=== PATIENT | male | born 1975 | race Two or more races ===

== ENCOUNTER 2019-09-21 16:19 | Observation (INO) | payer SELFPAY ==
[2019-09-21] MEDS ORDERED: Sodium Chloride 0.9% 1,000 ML IV ONE (17:11)
[2019-09-21] MEDS ORDERED: Sodium Chloride 0.9% 10 ML Syringe FLUSH PRN ×2 (17:11→21:23)
[2019-09-21] MEDS ORDERED: Ondansetron 4 MG/2 ML SDV IVPUSH ONE ×2 (17:11→19:44)
[2019-09-21] MEDS ORDERED: Sodium Chloride 0.9% 2.5 ML Syringe FLUSH PRN ×2 (17:11→21:23)
[2019-09-21] MEDS ORDERED: fentaNYL 100 MCG/2 ML SDV IVPUSH ONE ×2 (17:14→19:14)
[2019-09-21 17:32] LABS: BLOOD UREA NITROGEN,BUN 12 mg/dL (7.0-18.0); CARBON DIOXIDE,CO2 23.9 mmol/L (21.0-32.0); CHLORIDE,CL 99 mmol/L (98-107); GLUCOSE RANDOM 283 mg/dL (74-106); LIPASE 128 U/L (73-393); POTASSIUM,K 3.7 mmol/L (3.5-5.1); SODIUM,NA 133 mmol/L (136-148)
--- NOTE | 2019-09-21 17:48 | EDM.PDOC ---
<Sonali Case R - Last Filed: 09/21/19 20:37> ED HPI GENERAL MEDICAL PROBLEM - General Chief Complaint: Abdominal Pain Stated Complaint: FEVER, STOMACK PAIN Time Seen by Provider: 09/21/19 16:27 Source of Information: Reports: Patient History Limitations: Reports: No Limitations - History of Present Illness INITIAL COMMENTS - FREE TEXT/NARRATIVE: Patient presents reporting abdominal pain. Interview accomplished with the assistance of a porter luggage. Patient reports about 1:00 in the morning he started with some mild abdominal pain. At 4 AM it began to worsen. Also complains of weakness, lightheadedness, and chills. He characterizes the pain as a crampy pain. States it feels like he has to have a bowel movement but is unable to do so. Denies nausea vomiting diarrhea or dysuria. He did eat this afternoon approximately 1 hour prior to arrival a full meal of beans and eggs and toast. Has a medical history includes colitis. The patient states that he has had several episodes in the past and was treated with "some pills". abdominal Pain Score (Numeric/FACES): 8 - Related Data Allergies Allergy/AdvReac Type Severity Reaction Status Date / Time No Known Allergies Allergy Verified 09/21/19 22:16 Home Meds: Home Meds . [No Known Home Meds] 11/24/14 [History] Past Medical History Gastrointestinal History: Reports: Other (See Below) Other Gastrointestinal History: Colitis Endocrine/Metabolic History: Reports: Diabetes, Type II Social & Family History - Family History Family Medical History: Unobtainable - Tobacco Use Smoking Status *Q: Never Smoker - Recreational Drug Use Recreational Drug Use: No ED ROS GENERAL - Review of Systems Review Of Systems: Comprehensive ROS is negative, except as noted in HPI. ED EXAM, GI/ABD - Physical Exam Exam: See Below Exam Limited By: No Limitations General Appearance: Alert, Moderate Distress (Due to abdominal pain) Ears: Normal External Exam Nose: Normal Inspection Throat/Mouth: Normal Inspection Head: Atraumatic, Normocephalic Neck: Normal Inspection Respiratory/Chest: No Respiratory Distress, Lungs Clear, Normal Breath Sounds Cardiovascular: Normal Peripheral Pulses, Regular Rate, Rhythm, No Edema, No Murmur GI/Abdominal Exam: Normal Bowel Sounds, Soft, No Distention, Tender (Diffusely, more intense to palpation in the right lower quadrant) Back Exam: Normal Inspection Extremities: Normal Inspection, Normal Range of Motion Neurological: Alert, Oriented Psychiatric: Normal Affect, Normal Mood Skin Exam: Warm, Dry, Intact, Normal Color, No Rash Lymphatic: No Adenopathy Course - Vital Signs Last Recorded V/S: Last Vital Signs Temp 37.7 C 09/21/19 21:50 Pulse 90 09/21/19 21:50 Resp 20 09/21/19 21:50 BP 128/63 09/21/19 21:50 Pulse Ox 94 L 09/21/19 21:50 - Orders/Labs/Meds Orders: Active Orders 24 hr Category Date Time Status Lactated Ringers [Ringers, Lactated] 1,000 ml Med 09/21/19 19:45 Active IV ASDIRECTED Sodium Chloride 0.9% [Saline Flush] Med 09/21/19 17:11 Active 10 ml FLUSH ASDIRECTED PRN Sodium Chloride 0.9% [Saline Flush] Med 09/21/19 17:11 Active 2.5 ml FLUSH ASDIRECTED PRN Saline Lock Insert [OM.PC] Stat Oth 09/21/19 17:11 Ordered Medication Orders Diphenhydramine HCl (Benadryl) 25 mg IVPUSH Q4H PRN PRN Reason: Itching Hydromorphone HCl (Dilaudid) 0.5 mg IVPUSH Q1H PRN PRN Reason: Pain Lactated Ringer's (Ringers, Lactated) 1,000 mls @ 150 mls/hr IV ASDIRECTED [facility] Last Admin: 09/21/19 19:43 Dose: 150 mls/hr Pantoprazole Sodium 40 mg/ (Sodium Chloride) 10 mls @ 300 mls/hr IV DAILY [facility] Last Admin: 09/21/19 22:07 Dose: 300 mls/hr Sodium Chloride (Normal Saline) 1,000 mls @ 125 mls/hr IV ASDIRECTED [facility] Last Admin: 09/21/19 22:01 Dose: 125 mls/hr Piperacillin Sod/Tazobactam (Sod 3.375 gm/ Sodium Chloride) 50 mls @ 100 mls/ hr IV Q6H [facility] Insulin Aspart (Novolog) 0 unit SUBCUT TIDAC [facility]; Protocol Ketorolac Tromethamine (Toradol) 15 mg IVPUSH Q6H PRN PRN Reason: Pain Stop: 09/26/19 21:22 Ondansetron HCl (Zofran) 4 mg IVPUSH Q6H PRN PRN Reason: Nausea/Vomiting Sodium Chloride (Saline Flush) 10 ml FLUSH ASDIRECTED PRN PRN Reason: Keep Vein Open Last Admin: 09/21/19 17:33 Dose: 10 ml Sodium Chloride (Saline Flush) 2.5 ml FLUSH ASDIRECTED PRN PRN Reason: Keep Vein Open Last Admin: 09/21/19 17:33 Dose: 2.5 ml Sodium Chloride (Saline Flush) 10 ml FLUSH ASDIRECTED PRN PRN Reason: Keep Vein Open Sodium Chloride (Saline Flush) 2.5 ml FLUSH ASDIRECTED PRN PRN Reason: Keep Vein Open Sodium Chloride (Normal Saline) 10 ml IV ASDIRECTED PRN PRN Reason: IV Use Labs: Laboratory Tests 09/21/19 09/21/19 09/21/19 Range/Units 16:28 16:45 16:45 WBC 9.21 (4.0-11.0) K/uL RBC 5.13 (4.50-5.90) M/uL Hgb 15.3 (13.0-17.0) g/dL Hct 44.6 (38.0-50.0) % MCV 86.9 (80.0-98.0) fL MCH 29.8 (27.0-32.0) pg MCHC 34.3 (31.0-37.0) g/dL RDW Std Deviation 40.4 (28.0-62.0) fl RDW Coeff of Marisol 13 (11.0-15.0) % Plt Count 142 L (150-400) K/uL MPV 12.00 (7.40-12.00) fL Neut % (Auto) 90.7 H (48.0-80.0) % Lymph % (Auto) 5.5 L (16.0-40.0) % [place] % (Auto) 3.6 (0.0-15.0) % Eos % (Auto) 0.1 (0.0-7.0) % Baso % (Auto) 0.1 (0.0-1.5) % Neut # (Auto) 8.4 H (1.4-5.7) K/uL Lymph # (Auto) 0.5 L (0.6-2.4) K/uL [place] # (Auto) 0.3 (0.0-0.8) K/uL Eos # (Auto) 0.0 (0.0-0.7) K/uL Baso # (Auto) 0.0 (0.0-0.1) K/uL Nucleated RBC % 0.0 /100WBC Nucleated RBCs # 0 K/uL Sodium 133 L (136-148) mmol/L Potassium 3.7 (3.5-5.1) mmol/L Chloride 99 (98-107) mmol/L Carbon Dioxide 23.9 (21.0-32.0) mmol/L BUN 12 (7.0-18.0) mg/dL Creatinine 0.8 (0.8-1.3) mg/dL Est Cr Clr Drug Dosing 122.93 mL/min Estimated GFR (MDRD) > 60.0 ml/min Glucose 283 H (74-106) mg/dL Hemoglobin A1c (4.5-6.2) % Calcium 8.5 (8.5-10.1) mg/dL Total Bilirubin 1.6 H (0.2-1.0) mg/dL AST 13 L (15-37) IU/L ALT 43 (14-63) IU/L Alkaline Phosphatase 114 (46-116) U/L Total Protein 7.6 (6.4-8.2) g/dL Albumin 3.8 (3.4-5.0) g/dL Globulin 3.8 (2.6-4.0) g/dL Albumin/Globulin Ratio 1.0 (0.9-1.6) Amylase 29 (25-115) U/L Lipase 128 (73-393) U/L Urine Color YELLOW Urine Appearance HAZY Urine pH 6.5 (5.0-8.0) Ur Specific [place] 1.020 (1.001-1.035) Urine Protein TRACE H (NEGATIVE) mg/dL Urine Glucose (UA) 250 H (NEGATIVE) mg/dL Urine Ketones TRACE H (NEGATIVE) mg/dL Urine Occult Blood NEGATIVE (NEGATIVE) Urine Nitrite NEGATIVE (NEGATIVE) Urine Bilirubin NEGATIVE (NEGATIVE) Urine Urobilinogen 0.2 (<2.0) EU/dL Ur Leukocyte Esterase NEGATIVE (NEGATIVE) Urine RBC 0-3 (0-2/HPF) Urine WBC 0-3 (0-5/HPF) Ur Epithelial Cells RARE (NONE-FEW) Urine Bacteria FEW (NEGATIVE) Urine Mucus LIGHT (NONE-MOD) 09/21/19 Range/Units 16:45 WBC (4.0-11.0) K/uL RBC (4.50-5.90) M/uL Hgb (13.0-17.0) g/dL Hct (38.0-50.0) % MCV (80.0-98.0) fL MCH (27.0-32.0) pg MCHC (31.0-37.0) g/dL RDW Std Deviation (28.0-62.0) fl RDW Coeff of Marisol (11.0-15.0) % Plt Count (150-400) K/uL MPV (7.40-12.00) fL Neut % (Auto) (48.0-80.0) % Lymph % (Auto) (16.0-40.0) % [place] % (Auto) (0.0-15.0) % Eos % (Auto) (0.0-7.0) % Baso % (Auto) (0.0-1.5) % Neut # (Auto) (1.4-5.7) K/uL Lymph # (Auto) (0.6-2.4) K/uL [place] # (Auto) (0.0-0.8) K/uL Eos # (Auto) (0.0-0.7) K/uL Baso # (Auto) (0.0-0.1) K/uL Nucleated RBC % /100WBC Nucleated RBCs # K/uL Sodium (136-148) mmol/L Potassium (3.5-5.1) mmol/L Chloride (98-107) mmol/L Carbon Dioxide (21.0-32.0) mmol/L BUN (7.0-18.0) mg/dL Creatinine (0.8-1.3) mg/dL Est Cr Clr Drug Dosing mL/min Estimated GFR (MDRD) ml/min Glucose (74-106) mg/dL Hemoglobin A1c 7.5 H (4.5-6.2) % Calcium (8.5-10.1) mg/dL Total Bilirubin (0.2-1.0) mg/dL AST (15-37) IU/L ALT (14-63) IU/L Alkaline Phosphatase (46-116) U/L Total Protein (6.4-8.2) g/dL Albumin (3.4-5.0) g/dL Globulin (2.6-4.0) g/dL Albumin/Globulin Ratio (0.9-1.6) Amylase (25-115) U/L Lipase (73-393) U/L Urine Color Urine Appearance Urine pH (5.0-8.0) Ur Specific [place] (1.001-1.035) Urine Protein (NEGATIVE) mg/dL Urine Glucose (UA) (NEGATIVE) mg/dL Urine Ketones (NEGATIVE) mg/dL Urine Occult Blood (NEGATIVE) Urine Nitrite (NEGATIVE) Urine Bilirubin (NEGATIVE) Urine Urobilinogen (<2.0) EU/dL Ur Leukocyte Esterase (NEGATIVE) Urine RBC (0-2/HPF) Urine WBC (0-5/HPF) Ur Epithelial Cells (NONE-FEW) Urine Bacteria (NEGATIVE) Urine Mucus (NONE-MOD) Meds: Medications Generic Name Dose Route Start Last Admin Trade Name Freq PRN Reason Stop Dose Admin Diphenhydramine HCl 25 mg 09/21/19 21:23 Benadryl IVPUSH Q4H PRN Itching Hydromorphone HCl 0.5 mg 09/21/19 21:21 Dilaudid IVPUSH Q1H PRN Pain Lactated Ringer's 1,000 mls @ 150 mls/hr 09/21/19 19:45 09/21/19 19:43 Ringers, Lactated IV 150 mls/hr ASDIRECTED [facility] Administration Pantoprazole Sodium 40 mg/ 10 mls @ 300 mls/hr 09/21/19 21:15 09/21/19 22:07 Sodium Chloride IV 300 mls/hr DAILY [facility] Administration Sodium Chloride 1,000 mls @ 125 mls/hr 09/21/19 21:30 09/21/19 22:01 Normal Saline IV 125 mls/hr ASDIRECTED [facility] Administration Piperacillin Sod/Tazobactam 50 mls @ 100 mls/hr 09/22/19 03:00 Sod 3.375 gm/ Sodium Chloride IV Q6H [facility] Insulin Aspart 0 unit 09/22/19 07:30 Novolog SUBCUT TIDAC [facility] Protocol Ketorolac Tromethamine 15 mg 09/21/19 21:22 Toradol IVPUSH 09/26/19 21:22 Q6H PRN Pain Ondansetron HCl 4 mg 09/21/19 21:25 Zofran IVPUSH Q6H PRN Nausea/Vomiting Sodium Chloride 10 ml 09/21/19 17:11 09/21/19 17:33 Saline Flush FLUSH 10 ml ASDIRECTED PRN Administration Keep Vein Open Sodium Chloride 2.5 ml 09/21/19 17:11 09/21/19 17:33 Saline Flush FLUSH 2.5 ml ASDIRECTED PRN Administration Keep Vein Open Sodium Chloride 10 ml 09/21/19 21:23 Saline Flush FLUSH ASDIRECTED PRN Keep Vein Open Sodium Chloride 2.5 ml 09/21/19 21:23 Saline Flush FLUSH ASDIRECTED PRN Keep Vein Open Sodium Chloride 10 ml 09/21/19 21:23 Normal Saline IV ASDIRECTED PRN IV Use Discontinued Medications Generic Name Dose Route Start Last Admin Trade Name Freq PRN Reason Stop Dose Admin Fentanyl 50 mcg 09/21/19 17:14 09/21/19 17:32 Sublimaze IVPUSH 09/21/19 17:15 50 mcg ONETIME ONE Administration Fentanyl 50 mcg 09/21/19 19:14 09/21/19 19:24 Sublimaze IVPUSH 09/21/19 19:15 50 mcg ONETIME ONE Administration Hydromorphone HCl 0.5 mg 09/21/19 20:31 09/21/19 20:38 Dilaudid IVPUSH 09/21/19 20:32 0.5 mg ONETIME ONE Administration Sodium Chloride 1,000 mls @ 999 mls/hr 09/21/19 17:11 09/21/19 17:33 Normal Saline IV 09/21/19 18:11 999 mls/hr BOLUS ONE Administration Piperacillin Sod/Tazobactam 50 mls @ 100 mls/hr 09/21/19 20:33 09/21/19 20:41 Sod 3.375 gm/ Sodium Chloride IV 09/21/19 21:02 100 mls/hr ONETIME ONE Administration Iopamidol 100 ml 09/21/19 18:10 09/21/19 18:11 Isovue-370 (76%) IVPUSH 09/21/19 18:11 100 ml ONETIME STA Administration Metoclopramide HCl 10 mg 09/21/19 21:22 09/21/19 22:04 Reglan IV 09/21/19 21:23 10 mg ONETIME ONE Administration Ondansetron HCl 4 mg 09/21/19 17:11 09/21/19 17:32 Zofran IVPUSH 09/21/19 17:12 4 mg ONETIME ONE Administration Ondansetron HCl 4 mg 09/21/19 19:44 09/21/19 19:46 Zofran IVPUSH 09/21/19 19:45 4 mg ONETIME ONE Administration Ondansetron HCl Confirm 09/21/19 19:45 Zofran Administered 09/21/19 19:46 Dose 4 mg .[address] [facility] ONE - Re-Assessments/Exams Free Text/Narrative Re-Assessment/Exam: 09/21/19 20:37 Dr. Saul MD, General surgery here to consult, examine and refer patient to observation. Departure - Departure Time of Disposition: 20:38 Disposition: Home, Self-Care 01 Clinical Impression: Appendicitis Qualifiers: Appendicitis type: acute appendicitis Acute appendicitis type: unspecified acute appendicitis type Qualified Code(s): K35.80 - Unspecified acute appendicitis - Discharge Information Sepsis Event Note - Evaluation Sepsis Screening Result: No Definite Risk - Focused Exam Vital Signs: Vital Signs Temp Pulse Resp BP Pulse Ox 09/21/19 18:26 96 117/69 98 09/21/19 17:38 75 106/71 98 09/21/19 16:57 36.9 C 114 H 22 H 130/73 97 Date Exam was Performed: 09/21/19 Time Exam was Performed: 20:37 - My Orders Last 24 Hours: My Active Orders 09/21/19 19:45 Lactated Ringers [Ringers, Lactated] 1,000 ml IV ASDIRECTED - Assessment/Plan Last 24 Hours: My Active Orders 09/21/19 19:45 Lactated Ringers [Ringers, Lactated] 1,000 ml IV ASDIRECTED <Lawrence Kumar - Last Filed: 09/21/19 22:28> Sepsis Event Note - Focused Exam Date Exam was Performed: 09/21/19 Time Exam was Performed: 22:27 MLP Sign Off - Signature Requirements MLP Sign Off: Yes :: Please see my separate physician supervisory note from the same day.
[2019-09-21] MEDS ORDERED: Iopamidol 755 Mg/ML 100 ML Bottle IVPUSH STA (18:10)
--- NOTE | 2019-09-21 19:05 | CT ---
HISTORY: Lower abdominal pain. History of colitis. TECHNIQUE: Intravenous contrast enhanced CT of the abdomen and pelvis. 100 mL of Isovue-370 intravenous contrast was administered. COMPARISON: No prior. FINDINGS: There is no focal liver parenchymal abnormality. No biliary ductal dilatation. Gallbladder does not appear overly distended. Spleen is enlarged measuring 16.3 cm. The adrenal glands are normal. There is no focal pancreatic abnormality. Symmetric nephrograms. No renal mass or hydronephrosis. No obstructive urinary calculus. Small pelvic calcifications most compatible with phleboliths. Urinary bladder is nondistended. - There is likely a small hiatal hernia. There is no small bowel obstruction. The mid appendix is mildly dilated measuring 9 mm. The appendiceal tip, however, does not appear dilated and actually appears contracted. There does not appear to be significant inflammatory change immediately surrounding the appendix. No diverticulitis. No colonic wall thickening to suggest colitis. No localized fluid collection or free air. - No abdominal aortic aneurysm. - There is a small fat containing left inguinal hernia. - 1.8 cm right lower lobe pulmonary nodule is seen on image #13 of series 501. There is an air-filled lucency along the lateral aspect of the nodule. Linear atelectasis within the left lower lobe. - Mild degenerative changes of the spine. No acute fractures. IMPRESSION: 1. Mildly dilated mid aspect of the appendix which measures up to approximately 9 mm in diameter. The appendiceal tip, however, is not dilated and actually appears contracted. There do not appear to be significant inflammatory changes immediately surrounding the appendix. The findings are therefore not specific for appendicitis. Correlation with the patient`s white blood cell count and clinical presentation is recommended as early appendicitis is not excluded. 2. No diverticulitis or colitis. 3. No fluid collection or free air. 4. Indeterminate 1.8 cm right lower lobe pulmonary nodule. A PET-CT may be indicated for further characterization. If the patient has outside prior CTs, the current study compared with those to determine stability. Does the patient have a history of smoking? Dictated by Gabo Dickens MD @ 09/21/2019 7:04:07 PM Please note that all CT scans at this facility use dose modulation, iterative reconstruction, and/or weight-based dosing when appropriate to reduce radiation dose to as low as reasonably achievable. Dictated by: Gabo Dickens MD @ 09/21/2019 19:04:25 (Electronically Signed)
[2019-09-21] MEDS ORDERED: Ondansetron 4 MG/2 ML SDV ONE (19:45)
[2019-09-21] MEDS ORDERED: Lactated Ringers 1,000 ML IV SCH (19:45)
--- NOTE | 2019-09-21 19:54 | PCM.SN.2 ---
- Free Text/Narrative Note: Patient was presented to be by the mid-level provider. I have personally independently seen and evaluated the patient at bedside and, if available, have spoken with the with the family. I agree with the history, physical, medical decision making, and plan of treatment as documented above. I have performed the medical decision making for this patient, including assessing the results of all diagnostic testing and I have instructed the mid-level provider to document the results. 44-year-old male presenting with 1 day history of right lower quadrant abdominal pain along with chills and nausea. Tachycardic on arrival and on my evaluation, but afebrile. Persistent pain after multiple rounds of opioid analgesic medications. Laboratory work-up unrevealing. CT scan concerning for early appendicitis. General surgery consult requested, made NPO. Ongoing analgesia and nausea medications as needed. Evaluated in the ED by general surgery. Plan for observation admission to the surgery service. IV antibiotics and maintenance fluids ordered.
[2019-09-21] MEDS ORDERED: HYDROmorphone 1 MG/ML Syringe IVPUSH ONE (20:31)
[2019-09-21] MEDS ORDERED: Piperacillin/Tazobactam 3.375 GM in Sodium Chloride 0.9% 50 ML IV ONE (20:33)
--- NOTE | 2019-09-21 21:05 | PCM.HP.2 ---
H&P History of Present Illness - General Date of Service: 09/21/19 Admit Problem/Dx: Admission Diagnosis/Problem Admission Diagnosis/Problem Abdominal pain Source of Information: Patient History Limitations: Reports: No Limitations - History of Present Illness Initial Comments - Free Text/Narative: Patient is a 44 year old male who presents with abdominal pain. It started this morning at 1 am. It was not that severe but then woke him up at 4 am and was severe and constant. He states the pain is everywhere. It is associated with a headache, weakness, lightheadedness, and subjective fever and chills. He characterizes the pain as a crampy pain. States it feels like he has to have a bowel movement but is unable to do so. Denies nausea vomiting diarrhea or dysuria. He ate a large meal 1 hour prior to coming to the ER. He had a similar episode 3 years ago. He was given "pills" and it resolved. He denies any family history of diseases other than diabetes. He has diabetes himself and takes oral medications for this. He denies ever having abdominal surgery before. On arrival he was tachycardic and mildly hypertensive. He was afebrile. His labs were remarkable for an elevated glucose. Mildly elevated bilirubin of 1.6. Hyponatremia at 133. Normal BUN and Cr. Normal WBC but a slight neutropenic shift. His CT abdomen pelvis shows a right lower lobe lung nodule that will need follow up imaging/work up. He has mild splenomegaly, a hiatal hernia, a small fat containing left inguinal hernia, and a mild dilatation of the body of the appendix with no other inflammatory signs. abdominal Pain Score (Numeric/FACES): 8 - Related Data Allergies/Adverse Reactions: Allergies Allergy/AdvReac Type Severity Reaction Status Date / Time No Known Allergies Allergy Verified 09/21/19 17:00 Home Medications: Home Meds . [No Known Home Meds] 11/24/14 [History] Past Medical History Cardiovascular History: Reports: High Cholesterol Gastrointestinal History: Reports: Other (See Below) Other Gastrointestinal History: Colitis Endocrine/Metabolic History: Reports: Diabetes, Type II - Past Surgical History Head Surgeries/Procedures: Reports: None Social & Family History - Family History Family Medical History: Unobtainable - Tobacco Use Smoking Status *Q: Never Smoker - Recreational Drug Use Recreational Drug Use: No H&P Review of Systems - Review of Systems: Review Of Systems: Comprehensive ROS is negative, except as noted in HPI. Exam - Exam Exam: See Below - Vital Signs Vital Signs: Last Vital Signs Temp 36.9 C 09/21/19 16:57 Pulse 96 09/21/19 18:26 Resp 22 H 09/21/19 16:57 BP 117/69 09/21/19 18:26 Pulse Ox 98 09/21/19 18:26 Weight: 90.718 kg - Exam General: Alert, Oriented, Moderate Distress HEENT: Conjunctiva Clear, Mucosa Moist & [place], Posterior Pharynx Clear, Pupils Equal, Pupils Reactive Lungs: Clear to Auscultation, Normal Respiratory Effort Cardiovascular: Regular Rate, Regular Rhythm GI/Abdominal Exam: Soft, No Distention, No Mass, Other (generalized tenderness throughout abdomen). No: Guarding, Rigid, Rebound Extremities: Normal Inspection - Patient Data Lab Results Last 24 hrs: Laboratory Results - last 24 hr 09/21/19 09/21/19 09/21/19 Range/Units 16:28 16:45 16:45 WBC 9.21 (4.0-11.0) K/uL RBC 5.13 (4.50-5.90) M/uL Hgb 15.3 (13.0-17.0) g/dL Hct 44.6 (38.0-50.0) % MCV 86.9 (80.0-98.0) fL MCH 29.8 (27.0-32.0) pg MCHC 34.3 (31.0-37.0) g/dL RDW Std Deviation 40.4 (28.0-62.0) fl RDW Coeff of Marisol 13 (11.0-15.0) % Plt Count 142 L (150-400) K/uL MPV 12.00 (7.40-12.00) fL Neut % (Auto) 90.7 H (48.0-80.0) % Lymph % (Auto) 5.5 L (16.0-40.0) % [place] % (Auto) 3.6 (0.0-15.0) % Eos % (Auto) 0.1 (0.0-7.0) % Baso % (Auto) 0.1 (0.0-1.5) % Neut # (Auto) 8.4 H (1.4-5.7) K/uL Lymph # (Auto) 0.5 L (0.6-2.4) K/uL [place] # (Auto) 0.3 (0.0-0.8) K/uL Eos # (Auto) 0.0 (0.0-0.7) K/uL Baso # (Auto) 0.0 (0.0-0.1) K/uL Nucleated RBC % 0.0 /100WBC Nucleated RBCs # 0 K/uL Sodium 133 L (136-148) mmol/L Potassium 3.7 (3.5-5.1) mmol/L Chloride 99 (98-107) mmol/L Carbon Dioxide 23.9 (21.0-32.0) mmol/L BUN 12 (7.0-18.0) mg/dL Creatinine 0.8 (0.8-1.3) mg/dL Est Cr Clr Drug Dosing 122.93 mL/min Estimated GFR (MDRD) > 60.0 ml/min Glucose 283 H (74-106) mg/dL Calcium 8.5 (8.5-10.1) mg/dL Total Bilirubin 1.6 H (0.2-1.0) mg/dL AST 13 L (15-37) IU/L ALT 43 (14-63) IU/L Alkaline Phosphatase 114 (46-116) U/L Total Protein 7.6 (6.4-8.2) g/dL Albumin 3.8 (3.4-5.0) g/dL Globulin 3.8 (2.6-4.0) g/dL Albumin/Globulin Ratio 1.0 (0.9-1.6) Amylase 29 (25-115) U/L Lipase 128 (73-393) U/L Urine Color YELLOW Urine Appearance HAZY Urine pH 6.5 (5.0-8.0) Ur Specific [place] 1.020 (1.001-1.035) Urine Protein TRACE H (NEGATIVE) mg/dL Urine Glucose (UA) 250 H (NEGATIVE) mg/dL Urine Ketones TRACE H (NEGATIVE) mg/dL Urine Occult Blood NEGATIVE (NEGATIVE) Urine Nitrite NEGATIVE (NEGATIVE) Urine Bilirubin NEGATIVE (NEGATIVE) Urine Urobilinogen 0.2 (<2.0) EU/dL Ur Leukocyte Esterase NEGATIVE (NEGATIVE) Urine RBC 0-3 (0-2/HPF) Urine WBC 0-3 (0-5/HPF) Ur Epithelial Cells RARE (NONE-FEW) Urine Bacteria FEW (NEGATIVE) Urine Mucus LIGHT (NONE-MOD) Result Diagrams: 09/21/19 16:45 09/21/19 16:45 Sepsis Event Note - Evaluation Sepsis Screening Result: No Definite Risk - Focused Exam Vital Signs: Vital Signs Temp Pulse Resp BP Pulse Ox 09/21/19 18:26 96 117/69 98 09/21/19 17:38 75 106/71 98 09/21/19 16:57 36.9 C 114 H 22 H 130/73 97 Date Exam was Performed: 09/21/19 Time Exam was Performed: 21:13 - Problem List (1) Abdominal pain SNOMED Code(s): 26027160 ICD Code: R10.9 - UNSPECIFIED ABDOMINAL PAIN Status: Acute Current Visit : Yes Problem List Initiated/Reviewed/Updated: Yes Orders Last 24hrs: Active Orders 24 hr Category Date Time Status Patient Status [ADT] Stat ADT 09/21/19 20:31 Active Lactated Ringers [Ringers, Lactated] 1,000 ml Med 09/21/19 19:45 Active IV ASDIRECTED Sodium Chloride 0.9% [Saline Flush] Med 09/21/19 17:11 Active 10 ml FLUSH ASDIRECTED PRN Sodium Chloride 0.9% [Saline Flush] Med 09/21/19 17:11 Active 2.5 ml FLUSH ASDIRECTED PRN Saline Lock Insert [OM.PC] Stat Oth 09/21/19 17:11 Ordered Medication Orders Lactated Ringer's (Ringers, Lactated) 1,000 mls @ 150 mls/hr IV ASDIRECTED CHAR Last Admin: 09/21/19 19:43 Dose: 150 mls/hr Sodium Chloride (Saline Flush) 10 ml FLUSH ASDIRECTED PRN PRN Reason: Keep Vein Open Last Admin: 09/21/19 17:33 Dose: 10 ml Sodium Chloride (Saline Flush) 2.5 ml FLUSH ASDIRECTED PRN PRN Reason: Keep Vein Open Last Admin: 09/21/19 17:33 Dose: 2.5 ml Assessment/Plan Comment:: The patient's story, physical exam, labs and imaging are not straight forward appendicitis. He got a couple doses of fentanyl in the ER which helped his abdominal pain but did not take care of his headache. I gave him 0.5mg of Dilaudid IV and all his pain went away. His tachycardia and hypertension also resolved with pain control. He received 2L crystalloid in the ER as well. Through the use of an hot mill operator I discussed his labaratory findings. I will admit him overnight. I will fluid resuscitate him, given IV zosyn for broad antibiotic coverage, IV Dilaudid 0.5mg q 1hr as needed for pain and control his blood sugar. I will repeat labs in the morning as well. If his pain is the same or worse or his labs look worse will discuss appendectomy. In the meantime, will order IV protonix for possible gastritis or PUD. Will also order an H pylori stool antigen. If everything has improved tomorrow, will discuss further work up for other etiologies of his pain.
[2019-09-21] MEDS ORDERED: HYDROmorphone 1 MG/ML Syringe IVPUSH PRN (21:21)
[2019-09-21] MEDS ORDERED: Metoclopramide 10 MG/2 ML SDV IV ONE (21:22)
[2019-09-21] MEDS ORDERED: Sodium Chloride 0.9% 10 ML SDV IV PRN (21:23)
[2019-09-21] MEDS ORDERED: diphenhydrAMINE 50 MG/ML SDV IVPUSH PRN (21:23)
[2019-09-21] MEDS ORDERED: Ondansetron 4 MG/2 ML SDV IVPUSH PRN (21:25)
[2019-09-21 21:43] LABS: HEMOGLOBIN A1C 7.5 % (4.5-6.2)
[2019-09-21] MEDS: Sodium Chloride 0.9% 1,000 ML IV SCH (22:01)
[2019-09-21] MEDS: Pantoprazole 40 MG in Sodium Chloride 0.9% 10 ML IV SCH (22:07)
[2019-09-21] MEDS ORDERED: Acetaminophen 325 MG Tab PO ONE (23:53)
[2019-09-22] MEDS: Piperacillin/Tazobactam 3.375 GM in Sodium Chloride 0.9% 50 ML IV SCH ×2 (02:44→08:41)
[2019-09-22] MEDS: Sodium Chloride 0.9% 1,000 ML IV SCH (05:31)
[2019-09-22 05:52] LABS: BLOOD UREA NITROGEN,BUN 11 mg/dL (7.0-18.0); CARBON DIOXIDE,CO2 26.3 mmol/L (21.0-32.0); CHLORIDE,CL 103 mmol/L (98-107); GLUCOSE RANDOM 160 mg/dL (74-106); POTASSIUM,K 3.4 mmol/L (3.5-5.1); SODIUM,NA 137 mmol/L (136-148)
[2019-09-22] MEDS: Insulin Aspart 100 Units/ML 3 ML Pen SUBCUT SCH ×3 (06:44→17:37)
--- NOTE | 2019-09-22 07:55 | PCM.PREANE ---
Preanesthetic Assessment - Anesthesia/Transfusion/Family Hx Anesthesia History: No Prior Anesthesia Family History of Anesthesia Reaction: No Transfusion History: No Prior Transfusion(s) - Review of Systems General: No Symptoms Pulmonary: No Symptoms Cardiovascular: No Symptoms Gastrointestinal: No Symptoms Neurological: No Symptoms Other: Reports: None - Physical Assessment Vital Signs: Last Vital Signs Temp 98.3 F 09/22/19 07:30 Pulse 75 09/22/19 07:30 Resp 17 09/22/19 07:30 BP 118/68 09/22/19 07:30 Pulse Ox 96 09/22/19 07:30 Height: 5 ft 6 in Weight: 95.3 kg ASA Class: 2 Mental Status: Alert & Oriented x3 Dentition: Reports: Normal Dentition ROM/Head Extension: Full Lungs: Clear to Auscultation, Normal Respiratory Effort Cardiovascular: Regular Rate, Regular Rhythm - Lab Values: Laboratory Last Values WBC 4.78 K/uL (4.0-11.0) 09/22/19 05:02 RBC 4.48 M/uL (4.50-5.90) L 09/22/19 05:02 Hgb 13.2 g/dL (13.0-17.0) 09/22/19 05:02 Hct 39.2 % (38.0-50.0) 09/22/19 05:02 MCV 87.5 fL (80.0-98.0) 09/22/19 05:02 MCH 29.5 pg (27.0-32.0) 09/22/19 05:02 MCHC 33.7 g/dL (31.0-37.0) 09/22/19 05:02 RDW Std Deviation 40.4 fl (28.0-62.0) 09/22/19 05:02 RDW Coeff of Marisol 13 % (11.0-15.0) 09/22/19 05:02 Plt Count 108 K/uL (150-400) L 09/22/19 05:02 MPV 11.50 fL (7.40-12.00) 09/22/19 05:02 Neut % (Auto) 73.5 % (48.0-80.0) 09/22/19 05:02 Lymph % (Auto) 18.6 % (16.0-40.0) 09/22/19 05:02 [place] % (Auto) 7.1 % (0.0-15.0) 09/22/19 05:02 Eos % (Auto) 0.2 % (0.0-7.0) 09/22/19 05:02 Baso % (Auto) 0.6 % (0.0-1.5) 09/22/19 05:02 Neut # (Auto) 3.5 K/uL (1.4-5.7) 09/22/19 05:02 Lymph # (Auto) 0.9 K/uL (0.6-2.4) 09/22/19 05:02 [place] # (Auto) 0.3 K/uL (0.0-0.8) 09/22/19 05:02 Eos # (Auto) 0.0 K/uL (0.0-0.7) 09/22/19 05:02 Baso # (Auto) 0.0 K/uL (0.0-0.1) 09/22/19 05:02 Nucleated RBC % 0.0 /100WBC 09/22/19 05:02 Nucleated RBCs # 0 K/uL 09/22/19 05:02 Sodium 137 mmol/L (136-148) 09/22/19 05:02 Potassium 3.4 mmol/L (3.5-5.1) L 09/22/19 05:02 Chloride 103 mmol/L (98-107) 09/22/19 05:02 Carbon Dioxide 26.3 mmol/L (21.0-32.0) 09/22/19 05:02 BUN 11 mg/dL (7.0-18.0) 09/22/19 05:02 Creatinine 0.9 mg/dL (0.8-1.3) 09/22/19 05:02 Est Cr Clr Drug Dosing 95.50 mL/min 09/22/19 05:02 Estimated GFR (MDRD) > 60.0 ml/min 09/22/19 05:02 Glucose 160 mg/dL (74-106) H 09/22/19 05:02 POC Glucose 149 mg/dL (60-110) H 09/22/19 06:38 Hemoglobin A1c 7.5 % (4.5-6.2) H 09/21/19 16:45 Calcium 7.9 mg/dL (8.5-10.1) L 09/22/19 05:02 Total Bilirubin 1.3 mg/dL (0.2-1.0) H 09/22/19 05:02 AST 17 IU/L (15-37) 09/22/19 05:02 ALT 36 IU/L (14-63) 09/22/19 05:02 Alkaline Phosphatase 101 U/L (46-116) 09/22/19 05:02 Total Protein 6.3 g/dL (6.4-8.2) L 09/22/19 05:02 Albumin 3.0 g/dL (3.4-5.0) L 09/22/19 05:02 Globulin 3.3 g/dL (2.6-4.0) 09/22/19 05:02 Albumin/Globulin Ratio 0.9 (0.9-1.6) 09/22/19 05:02 Amylase 29 U/L (25-115) 09/21/19 16:45 Lipase 128 U/L (73-393) 09/21/19 16:45 Urine Color YELLOW 09/21/19 16:28 Urine Appearance HAZY 09/21/19 16:28 Urine pH 6.5 (5.0-8.0) 09/21/19 16:28 Ur Specific [place] 1.020 (1.001-1.035) 09/21/19 16:28 Urine Protein TRACE mg/dL (NEGATIVE) H 09/21/19 16:28 Urine Glucose (UA) 250 mg/dL (NEGATIVE) H 09/21/19 16:28 Urine Ketones TRACE mg/dL (NEGATIVE) H 09/21/19 16:28 Urine Occult Blood NEGATIVE (NEGATIVE) 09/21/19 16:28 Urine Nitrite NEGATIVE (NEGATIVE) 09/21/19 16:28 Urine Bilirubin NEGATIVE (NEGATIVE) 09/21/19 16:28 Urine Urobilinogen 0.2 EU/dL (<2.0) 09/21/19 16:28 Ur Leukocyte Esterase NEGATIVE (NEGATIVE) 09/21/19 16:28 Urine RBC 0-3 (0-2/HPF) 09/21/19 16:28 Urine WBC 0-3 (0-5/HPF) 09/21/19 16:28 Ur Epithelial Cells RARE (NONE-FEW) 09/21/19 16:28 Urine Bacteria FEW (NEGATIVE) 09/21/19 16:28 Urine Mucus LIGHT (NONE-MOD) 09/21/19 16:28 - Allergies Allergies/Adverse Reactions: Allergies Allergy/AdvReac Type Severity Reaction Status Date / Time No Known Allergies Allergy Verified 09/21/19 22:16 - Blood Blood Available: No - Anesthesia Plan Pre-Op Medication Ordered: None - Acknowledgements Anesthesia Type Planned: General Anesthesia Pt an Appropriate Candidate for the Planned Anesthesia: Yes Alternatives and Risks of Anesthesia Discussed w Pt/Guardian: Yes Pt/Guardian Understands and Agrees with Anesthesia Plan: Yes Additional Comments: PMH: dm2, hld, "colitis" PLAN: GET PreAnesthesia Questionnaire Cardiovascular History: Reports: High Cholesterol Gastrointestinal History: Reports: Other (See Below) Other Gastrointestinal History: Colitis Endocrine/Metabolic History: Reports: Diabetes, Type II - Past Surgical History Head Surgeries/Procedures: Reports: None - SUBSTANCE USE Smoking Status *Q: Never Smoker Second Hand Smoke Exposure: No Recreational Drug Use History: No - HOME MEDS Home Medications: Home Meds . [No Known Home Meds] 11/24/14 [History] - CURRENT (IN HOUSE) MEDS Current Meds: Current Medications Diphenhydramine HCl (Benadryl) 25 mg IVPUSH Q4H PRN PRN Reason: Itching Hydromorphone HCl (Dilaudid) 0.5 mg IVPUSH Q1H PRN PRN Reason: Pain Lactated Ringer's (Ringers, Lactated) 1,000 mls @ 150 mls/hr IV ASDIRECTED [facility] Last Admin: 09/21/19 19:43 Dose: 150 mls/hr Pantoprazole Sodium 40 mg/ (Sodium Chloride) 10 mls @ 300 mls/hr IV DAILY [facility] Last Admin: 09/21/19 22:07 Dose: 300 mls/hr Sodium Chloride (Normal Saline) 1,000 mls @ 125 mls/hr IV ASDIRECTED [facility] Last Admin: 09/22/19 05:31 Dose: 125 mls/hr Piperacillin Sod/Tazobactam (Sod 3.375 gm/ Sodium Chloride) 50 mls @ 100 mls/ hr IV Q6H [facility] Last Admin: 09/22/19 02:44 Dose: 100 mls/hr Insulin Aspart (Novolog) 0 unit SUBCUT TIDAC [facility]; Protocol Last Admin: 09/22/19 06:44 Dose: Not Given Ketorolac Tromethamine (Toradol) 15 mg IVPUSH Q6H PRN PRN Reason: Pain Stop: 09/26/19 21:22 Ondansetron HCl (Zofran) 4 mg IVPUSH Q6H PRN PRN Reason: Nausea/Vomiting Sodium Chloride (Saline Flush) 10 ml FLUSH ASDIRECTED PRN PRN Reason: Keep Vein Open Last Admin: 09/21/19 17:33 Dose: 10 ml Sodium Chloride (Saline Flush) 2.5 ml FLUSH ASDIRECTED PRN PRN Reason: Keep Vein Open Last Admin: 09/21/19 17:33 Dose: 2.5 ml Sodium Chloride (Saline Flush) 10 ml FLUSH ASDIRECTED PRN PRN Reason: Keep Vein Open Sodium Chloride (Saline Flush) 2.5 ml FLUSH ASDIRECTED PRN PRN Reason: Keep Vein Open Sodium Chloride (Normal Saline) 10 ml IV ASDIRECTED PRN PRN Reason: IV Use Discontinued Medications Acetaminophen (Tylenol) 650 mg PO NOW ONE Stop: 09/21/19 23:54 Last Admin: 09/22/19 00:14 Dose: 650 mg Fentanyl (Sublimaze) 50 mcg IVPUSH ONETIME ONE Stop: 09/21/19 17:15 Last Admin: 09/21/19 17:32 Dose: 50 mcg Fentanyl (Sublimaze) 50 mcg IVPUSH ONETIME ONE Stop: 09/21/19 19:15 Last Admin: 09/21/19 19:24 Dose: 50 mcg Hydromorphone HCl (Dilaudid) 0.5 mg IVPUSH ONETIME ONE Stop: 09/21/19 20:32 Last Admin: 09/21/19 20:38 Dose: 0.5 mg Sodium Chloride (Normal Saline) 1,000 mls @ 999 mls/hr IV BOLUS ONE Stop: 09/21/19 18:11 Last Admin: 09/21/19 17:33 Dose: 999 mls/hr Piperacillin Sod/Tazobactam (Sod 3.375 gm/ Sodium Chloride) 50 mls @ 100 mls/ hr IV ONETIME ONE Stop: 09/21/19 21:02 Last Admin: 09/21/19 20:41 Dose: 100 mls/hr Iopamidol (Isovue-370 (76%)) 100 ml IVPUSH ONETIME STA Stop: 09/21/19 18:11 Last Admin: 09/21/19 18:11 Dose: 100 ml Metoclopramide HCl (Reglan) 10 mg IV ONETIME ONE Stop: 09/21/19 21:23 Last Admin: 09/21/19 22:04 Dose: 10 mg Ondansetron HCl (Zofran) 4 mg IVPUSH ONETIME ONE Stop: 09/21/19 17:12 Last Admin: 09/21/19 17:32 Dose: 4 mg Ondansetron HCl (Zofran) 4 mg IVPUSH ONETIME ONE Stop: 09/21/19 19:45 Last Admin: 09/21/19 19:46 Dose: 4 mg Ondansetron HCl (Zofran) Confirm Administered Dose 4 mg .ROUTE .STK-MED ONE Stop: 09/21/19 19:46
--- NOTE | 2019-09-22 07:58 | PCM.SURGPN ---
- General Info Date of Service: 09/22/19 Functional Status: Reports: Other (Patient was febrile last evening. This morning his pain is located in the RLQ. It now hurts when he moves in bed. ) - Review of Systems General: Reports: Fever HEENT: Reports: No Symptoms Pulmonary: Reports: No Symptoms Cardiovascular: Reports: No Symptoms Gastrointestinal: Reports: Abdominal Pain, Decreased Appetite Genitourinary: Reports: No Symptoms Musculoskeletal: Reports: No Symptoms Skin: Reports: No Symptoms - Patient Data Vitals - Most Recent: Last Vital Signs Temp 36.8 C 09/22/19 07:30 Pulse 75 09/22/19 07:30 Resp 17 09/22/19 07:30 BP 118/68 09/22/19 07:30 Pulse Ox 96 09/22/19 07:30 Weight - Most Recent: 95.3 kg I&O - Last 24 Hours: Intake & Output 09/21/19 09/22/19 09/22/19 22:59 06:59 14:59 Intake Total 757 Balance 757 Lab Results Last 24 Hrs: Laboratory Results - last 24 hr 09/21/19 09/21/19 09/21/19 Range/Units 16:28 16:45 16:45 WBC 9.21 (4.0-11.0) K/uL RBC 5.13 (4.50-5.90) M/uL Hgb 15.3 (13.0-17.0) g/dL Hct 44.6 (38.0-50.0) % MCV 86.9 (80.0-98.0) fL MCH 29.8 (27.0-32.0) pg MCHC 34.3 (31.0-37.0) g/dL RDW Std Deviation 40.4 (28.0-62.0) fl RDW Coeff of Marisol 13 (11.0-15.0) % Plt Count 142 L (150-400) K/uL MPV 12.00 (7.40-12.00) fL Neut % (Auto) 90.7 H (48.0-80.0) % Lymph % (Auto) 5.5 L (16.0-40.0) % [place] % (Auto) 3.6 (0.0-15.0) % Eos % (Auto) 0.1 (0.0-7.0) % Baso % (Auto) 0.1 (0.0-1.5) % Neut # (Auto) 8.4 H (1.4-5.7) K/uL Lymph # (Auto) 0.5 L (0.6-2.4) K/uL [place] # (Auto) 0.3 (0.0-0.8) K/uL Eos # (Auto) 0.0 (0.0-0.7) K/uL Baso # (Auto) 0.0 (0.0-0.1) K/uL Nucleated RBC % 0.0 /100WBC Nucleated RBCs # 0 K/uL Sodium 133 L (136-148) mmol/L Potassium 3.7 (3.5-5.1) mmol/L Chloride 99 (98-107) mmol/L Carbon Dioxide 23.9 (21.0-32.0) mmol/L BUN 12 (7.0-18.0) mg/dL Creatinine 0.8 (0.8-1.3) mg/dL Est Cr Clr Drug Dosing 122.93 mL/min Estimated GFR (MDRD) > 60.0 ml/min Glucose 283 H (74-106) mg/dL POC Glucose (60-110) mg/dL Hemoglobin A1c (4.5-6.2) % Calcium 8.5 (8.5-10.1) mg/dL Total Bilirubin 1.6 H (0.2-1.0) mg/dL AST 13 L (15-37) IU/L ALT 43 (14-63) IU/L Alkaline Phosphatase 114 (46-116) U/L Total Protein 7.6 (6.4-8.2) g/dL Albumin 3.8 (3.4-5.0) g/dL Globulin 3.8 (2.6-4.0) g/dL Albumin/Globulin Ratio 1.0 (0.9-1.6) Amylase 29 (25-115) U/L Lipase 128 (73-393) U/L Urine Color YELLOW Urine Appearance HAZY Urine pH 6.5 (5.0-8.0) Ur Specific [place] 1.020 (1.001-1.035) Urine Protein TRACE H (NEGATIVE) mg/dL Urine Glucose (UA) 250 H (NEGATIVE) mg/dL Urine Ketones TRACE H (NEGATIVE) mg/dL Urine Occult Blood NEGATIVE (NEGATIVE) Urine Nitrite NEGATIVE (NEGATIVE) Urine Bilirubin NEGATIVE (NEGATIVE) Urine Urobilinogen 0.2 (<2.0) EU/dL Ur Leukocyte Esterase NEGATIVE (NEGATIVE) Urine RBC 0-3 (0-2/HPF) Urine WBC 0-3 (0-5/HPF) Ur Epithelial Cells RARE (NONE-FEW) Urine Bacteria FEW (NEGATIVE) Urine Mucus LIGHT (NONE-MOD) 09/21/19 09/21/19 09/22/19 Range/Units 16:45 22:12 05:02 WBC 4.78 (4.0-11.0) K/uL RBC 4.48 L (4.50-5.90) M/uL Hgb 13.2 (13.0-17.0) g/dL Hct 39.2 (38.0-50.0) % MCV 87.5 (80.0-98.0) fL MCH 29.5 (27.0-32.0) pg MCHC 33.7 (31.0-37.0) g/dL RDW Std Deviation 40.4 (28.0-62.0) fl RDW Coeff of Marisol 13 (11.0-15.0) % Plt Count 108 L (150-400) K/uL MPV 11.50 (7.40-12.00) fL Neut % (Auto) 73.5 (48.0-80.0) % Lymph % (Auto) 18.6 (16.0-40.0) % [place] % (Auto) 7.1 (0.0-15.0) % Eos % (Auto) 0.2 (0.0-7.0) % Baso % (Auto) 0.6 (0.0-1.5) % Neut # (Auto) 3.5 (1.4-5.7) K/uL Lymph # (Auto) 0.9 (0.6-2.4) K/uL [place] # (Auto) 0.3 (0.0-0.8) K/uL Eos # (Auto) 0.0 (0.0-0.7) K/uL Baso # (Auto) 0.0 (0.0-0.1) K/uL Nucleated RBC % 0.0 /100WBC Nucleated RBCs # 0 K/uL Sodium (136-148) mmol/L Potassium (3.5-5.1) mmol/L Chloride (98-107) mmol/L Carbon Dioxide (21.0-32.0) mmol/L BUN (7.0-18.0) mg/dL Creatinine (0.8-1.3) mg/dL Est Cr Clr Drug Dosing mL/min Estimated GFR (MDRD) ml/min Glucose (74-106) mg/dL POC Glucose 140 H (60-110) mg/dL Hemoglobin A1c 7.5 H (4.5-6.2) % Calcium (8.5-10.1) mg/dL Total Bilirubin (0.2-1.0) mg/dL AST (15-37) IU/L ALT (14-63) IU/L Alkaline Phosphatase (46-116) U/L Total Protein (6.4-8.2) g/dL Albumin (3.4-5.0) g/dL Globulin (2.6-4.0) g/dL Albumin/Globulin Ratio (0.9-1.6) Amylase (25-115) U/L Lipase (73-393) U/L Urine Color Urine Appearance Urine pH (5.0-8.0) Ur Specific [place] (1.001-1.035) Urine Protein (NEGATIVE) mg/dL Urine Glucose (UA) (NEGATIVE) mg/dL Urine Ketones (NEGATIVE) mg/dL Urine Occult Blood (NEGATIVE) Urine Nitrite (NEGATIVE) Urine Bilirubin (NEGATIVE) Urine Urobilinogen (<2.0) EU/dL Ur Leukocyte Esterase (NEGATIVE) Urine RBC (0-2/HPF) Urine WBC (0-5/HPF) Ur Epithelial Cells (NONE-FEW) Urine Bacteria (NEGATIVE) Urine Mucus (NONE-MOD) 09/22/19 09/22/19 Range/Units 05:02 06:38 WBC (4.0-11.0) K/uL RBC (4.50-5.90) M/uL Hgb (13.0-17.0) g/dL Hct (38.0-50.0) % MCV (80.0-98.0) fL MCH (27.0-32.0) pg MCHC (31.0-37.0) g/dL RDW Std Deviation (28.0-62.0) fl RDW Coeff of Marisol (11.0-15.0) % Plt Count (150-400) K/uL MPV (7.40-12.00) fL Neut % (Auto) (48.0-80.0) % Lymph % (Auto) (16.0-40.0) % [place] % (Auto) (0.0-15.0) % Eos % (Auto) (0.0-7.0) % Baso % (Auto) (0.0-1.5) % Neut # (Auto) (1.4-5.7) K/uL Lymph # (Auto) (0.6-2.4) K/uL [place] # (Auto) (0.0-0.8) K/uL Eos # (Auto) (0.0-0.7) K/uL Baso # (Auto) (0.0-0.1) K/uL Nucleated RBC % /100WBC Nucleated RBCs # K/uL Sodium 137 (136-148) mmol/L Potassium 3.4 L (3.5-5.1) mmol/L Chloride 103 (98-107) mmol/L Carbon Dioxide 26.3 (21.0-32.0) mmol/L BUN 11 (7.0-18.0) mg/dL Creatinine 0.9 (0.8-1.3) mg/dL Est Cr Clr Drug Dosing 95.50 mL/min Estimated GFR (MDRD) > 60.0 ml/min Glucose 160 H (74-106) mg/dL POC Glucose 149 H (60-110) mg/dL Hemoglobin A1c (4.5-6.2) % Calcium 7.9 L (8.5-10.1) mg/dL Total Bilirubin 1.3 H (0.2-1.0) mg/dL AST 17 (15-37) IU/L ALT 36 (14-63) IU/L Alkaline Phosphatase 101 (46-116) U/L Total Protein 6.3 L (6.4-8.2) g/dL Albumin 3.0 L (3.4-5.0) g/dL Globulin 3.3 (2.6-4.0) g/dL Albumin/Globulin Ratio 0.9 (0.9-1.6) Amylase (25-115) U/L Lipase (73-393) U/L Urine Color Urine Appearance Urine pH (5.0-8.0) Ur Specific [place] (1.001-1.035) Urine Protein (NEGATIVE) mg/dL Urine Glucose (UA) (NEGATIVE) mg/dL Urine Ketones (NEGATIVE) mg/dL Urine Occult Blood (NEGATIVE) Urine Nitrite (NEGATIVE) Urine Bilirubin (NEGATIVE) Urine Urobilinogen (<2.0) EU/dL Ur Leukocyte Esterase (NEGATIVE) Urine RBC (0-2/HPF) Urine WBC (0-5/HPF) Ur Epithelial Cells (NONE-FEW) Urine Bacteria (NEGATIVE) Urine Mucus (NONE-MOD) Med Orders - Current: Current Medications Diphenhydramine HCl (Benadryl) 25 mg IVPUSH Q4H PRN PRN Reason: Itching Hydromorphone HCl (Dilaudid) 0.5 mg IVPUSH Q1H PRN PRN Reason: Pain Lactated Ringer's (Ringers, Lactated) 1,000 mls @ 150 mls/hr IV ASDIRECTED [facility] Last Admin: 09/21/19 19:43 Dose: 150 mls/hr Pantoprazole Sodium 40 mg/ (Sodium Chloride) 10 mls @ 300 mls/hr IV DAILY [facility] Last Admin: 09/21/19 22:07 Dose: 300 mls/hr Sodium Chloride (Normal Saline) 1,000 mls @ 125 mls/hr IV ASDIRECTED [facility] Last Admin: 09/22/19 05:31 Dose: 125 mls/hr Piperacillin Sod/Tazobactam (Sod 3.375 gm/ Sodium Chloride) 50 mls @ 100 mls/ hr IV Q6H [facility] Last Admin: 09/22/19 02:44 Dose: 100 mls/hr Insulin Aspart (Novolog) 0 unit SUBCUT TIDAC [facility]; Protocol Last Admin: 09/22/19 06:44 Dose: Not Given Ketorolac Tromethamine (Toradol) 15 mg IVPUSH Q6H PRN PRN Reason: Pain Stop: 09/26/19 21:22 Ondansetron HCl (Zofran) 4 mg IVPUSH Q6H PRN PRN Reason: Nausea/Vomiting Sodium Chloride (Saline Flush) 10 ml FLUSH ASDIRECTED PRN PRN Reason: Keep Vein Open Last Admin: 09/21/19 17:33 Dose: 10 ml Sodium Chloride (Saline Flush) 2.5 ml FLUSH ASDIRECTED PRN PRN Reason: Keep Vein Open Last Admin: 09/21/19 17:33 Dose: 2.5 ml Sodium Chloride (Saline Flush) 10 ml FLUSH ASDIRECTED PRN PRN Reason: Keep Vein Open Sodium Chloride (Saline Flush) 2.5 ml FLUSH ASDIRECTED PRN PRN Reason: Keep Vein Open Sodium Chloride (Normal Saline) 10 ml IV ASDIRECTED PRN PRN Reason: IV Use Discontinued Medications Acetaminophen (Tylenol) 650 mg PO NOW ONE Stop: 09/21/19 23:54 Last Admin: 09/22/19 00:14 Dose: 650 mg Fentanyl (Sublimaze) 50 mcg IVPUSH ONETIME ONE Stop: 09/21/19 17:15 Last Admin: 09/21/19 17:32 Dose: 50 mcg Fentanyl (Sublimaze) 50 mcg IVPUSH ONETIME ONE Stop: 09/21/19 19:15 Last Admin: 09/21/19 19:24 Dose: 50 mcg Hydromorphone HCl (Dilaudid) 0.5 mg IVPUSH ONETIME ONE Stop: 09/21/19 20:32 Last Admin: 09/21/19 20:38 Dose: 0.5 mg Sodium Chloride (Normal Saline) 1,000 mls @ 999 mls/hr IV BOLUS ONE Stop: 09/21/19 18:11 Last Admin: 09/21/19 17:33 Dose: 999 mls/hr Piperacillin Sod/Tazobactam (Sod 3.375 gm/ Sodium Chloride) 50 mls @ 100 mls/ hr IV ONETIME ONE Stop: 09/21/19 21:02 Last Admin: 09/21/19 20:41 Dose: 100 mls/hr Iopamidol (Isovue-370 (76%)) 100 ml IVPUSH ONETIME STA Stop: 09/21/19 18:11 Last Admin: 09/21/19 18:11 Dose: 100 ml Metoclopramide HCl (Reglan) 10 mg IV ONETIME ONE Stop: 09/21/19 21:23 Last Admin: 09/21/19 22:04 Dose: 10 mg Ondansetron HCl (Zofran) 4 mg IVPUSH ONETIME ONE Stop: 09/21/19 17:12 Last Admin: 09/21/19 17:32 Dose: 4 mg Ondansetron HCl (Zofran) 4 mg IVPUSH ONETIME ONE Stop: 09/21/19 19:45 Last Admin: 09/21/19 19:46 Dose: 4 mg Ondansetron HCl (Zofran) Confirm Administered Dose 4 mg .ROUTE .STK-MED ONE Stop: 09/21/19 19:46 - Exam General: Alert, Oriented, Mild Distress Lungs: Normal Respiratory Effort Cardiovascular: Regular Rate GI/Abdominal Exam: Soft, No Distention, Guarding (RLQ), Rebound (RLQ), Tender ( RLQ) Extremities: Normal Inspection Sepsis Event Note - Evaluation Sepsis Screening Result: No Definite Risk - Focused Exam Vital Signs: Vital Signs Temp Temp Pulse Resp BP Pulse Ox 09/22/19 07:30 36.8 C 75 17 118/68 96 09/22/19 03:23 36.9 C 60 19 102/59 L 97 09/22/19 01:25 37.2 C 09/22/19 00:14 38.2 C H 09/21/19 23:46 38.2 C H 84 18 107/56 L 93 L 09/21/19 21:50 37.7 C 90 20 128/63 94 L Date Exam was Performed: 09/22/19 Time Exam was Performed: 07:50 - Problem List & Annotations (1) Abdominal pain SNOMED Code(s): 75528179 Code(s): R10.9 - UNSPECIFIED ABDOMINAL PAIN Status: Acute Current Visit: Yes - Problem List Review Problem List Initiated/Reviewed/Updated: Yes - My Orders Last 24 Hours: Active Orders 24 hr Category Date Time Status Patient Status [ADT] Routine ADT 09/21/19 21:23 Active Communication Order [RC] ROUTINE Care 09/21/19 21:27 Active Oxygen Therapy [RC] PRN Care 09/21/19 21:23 Active RT Incentive Spirometry [RC] Q1HWA Care 09/21/19 21:23 Active Up ad Raina [RC] ASDIRECTED Care 09/21/19 21:23 Active Vital Signs [RC] PER UNIT ROUTINE Care 09/21/19 21:23 Active Nothing Per Oral Diet [DIET] Diet 09/21/19 Dinner Active CORONAVIRUS COVID-19 RAPID PCR [MOLEC] Stat Lab 09/22/19 07:30 Received H PYLORI STOOL ANTIGEN [MREF] Routine Lab 09/21/19 21:13 Ordered HYDROmorphone [Dilaudid] Med 09/21/19 21:21 Active 0.5 mg IVPUSH Q1H PRN Insulin Aspart [NovoLOG] Med 09/22/19 07:30 Active See Protocol SUBCUT TIDAC Ketorolac [Toradol] Med 09/21/19 21:22 Active 15 mg IVPUSH Q6H PRN Lactated Ringers [Ringers, Lactated] 1,000 ml Med 09/21/19 19:45 Active IV ASDIRECTED Ondansetron [Zofran] Med 09/21/19 21:25 Active 4 mg IVPUSH Q6H PRN Pantoprazole [ProTONIX IV] 40 mg Med 09/21/19 21:15 Active Sodium Chloride 0.9% [Normal Saline] 10 ml IV DAILY Piperacillin/Tazobactam [Piperacil-Tazobact] 3.375 gm Med 09/22/19 03:00 Active Sodium Chloride 0.9% [Normal Saline] 50 ml IV Q6H Sodium Chloride 0.9% [Normal Saline] Med 09/21/19 21:23 Active 10 ml IV ASDIRECTED PRN Sodium Chloride 0.9% [Normal Saline] 1,000 ml Med 09/21/19 21:30 Active IV ASDIRECTED Sodium Chloride 0.9% [Saline Flush] Med 09/21/19 17:11 Active 10 ml FLUSH ASDIRECTED PRN Sodium Chloride 0.9% [Saline Flush] Med 09/21/19 21:23 Active 10 ml FLUSH ASDIRECTED PRN Sodium Chloride 0.9% [Saline Flush] Med 09/21/19 17:11 Active 2.5 ml FLUSH ASDIRECTED PRN Sodium Chloride 0.9% [Saline Flush] Med 09/21/19 21:23 Active 2.5 ml FLUSH ASDIRECTED PRN diphenhydrAMINE [Benadryl] Med 09/21/19 21:23 Active 25 mg IVPUSH Q4H PRN Peripheral IV Insertion Adult [OM.PC] Urgent Oth 09/21/19 21:23 Ordered Saline Lock Insert [OM.PC] Stat Oth 09/21/19 17:11 Ordered Resuscitation Status Routine Resus Stat 09/21/19 21:23 Ordered Medication Orders Diphenhydramine HCl (Benadryl) 25 mg IVPUSH Q4H PRN PRN Reason: Itching Hydromorphone HCl (Dilaudid) 0.5 mg IVPUSH Q1H PRN PRN Reason: Pain Lactated Ringer's (Ringers, Lactated) 1,000 mls @ 150 mls/hr IV ASDIRECTED [facility] Last Admin: 09/21/19 19:43 Dose: 150 mls/hr Pantoprazole Sodium 40 mg/ (Sodium Chloride) 10 mls @ 300 mls/hr IV DAILY [facility] Last Admin: 09/21/19 22:07 Dose: 300 mls/hr Sodium Chloride (Normal Saline) 1,000 mls @ 125 mls/hr IV ASDIRECTED [facility] Last Admin: 09/22/19 05:31 Dose: 125 mls/hr Infusion: 09/22/19 05:31 Dose: 125 mls/hr Admin: 09/21/19 22:01 Dose: 125 mls/hr Piperacillin Sod/Tazobactam (Sod 3.375 gm/ Sodium Chloride) 50 mls @ 100 mls/ hr IV Q6H [facility] Last Admin: 09/22/19 02:44 Dose: 100 mls/hr Insulin Aspart (Novolog) 0 unit SUBCUT TIDAC [facility]; Protocol Last Admin: 09/22/19 06:44 Dose: Not Given Ketorolac Tromethamine (Toradol) 15 mg IVPUSH Q6H PRN PRN Reason: Pain Stop: 09/26/19 21:22 Ondansetron HCl (Zofran) 4 mg IVPUSH Q6H PRN PRN Reason: Nausea/Vomiting Sodium Chloride (Saline Flush) 10 ml FLUSH ASDIRECTED PRN PRN Reason: Keep Vein Open Last Admin: 09/21/19 17:33 Dose: 10 ml Sodium Chloride (Saline Flush) 2.5 ml FLUSH ASDIRECTED PRN PRN Reason: Keep Vein Open Last Admin: 09/21/19 17:33 Dose: 2.5 ml Sodium Chloride (Saline Flush) 10 ml FLUSH ASDIRECTED PRN PRN Reason: Keep Vein Open Sodium Chloride (Saline Flush) 2.5 ml FLUSH ASDIRECTED PRN PRN Reason: Keep Vein Open Sodium Chloride (Normal Saline) 10 ml IV ASDIRECTED PRN PRN Reason: IV Use - Plan Plan (Free Text/Narrative):: Patient's labs appear better this morning with a lower WBC and a decreased neurtrophil percent, however his pain is now more concerning for appendicitis. I told the patient that I feel he needs to have an appendectomy. Through the use of an automotive parts interpreter, we discussed the pathophysiology of acute appendicits. We discussed the need for appendectomy. I explained that I will attempt this laparoscopically but should I be unable to perform it safely I will convert to open. We discussed the expected perioperative course as well as the risks including bleeding, infection, or damage to surrounding structures. He verbalized understanding and wishes to proceed.
[2019-09-22] MEDS ORDERED: fentaNYL 100 MCG/2 ML SDV ONE (08:23)
[2019-09-22] MEDS ORDERED: Lidocaine 2% 100 MG/5 ML Syringe ONE (08:23)
[2019-09-22] MEDS ORDERED: Glycopyrrolate 0.2 MG/ML SDV ONE (08:23)
[2019-09-22] MEDS ORDERED: Propofol 200 MG/20 ML SDV ONE (08:23)
[2019-09-22] MEDS ORDERED: Rocuronium 100 MG/10 ML Syringe ONE (08:23)
[2019-09-22] MEDS ORDERED: Ondansetron 4 MG/2 ML SDV ONE (08:23)
[2019-09-22] MEDS ORDERED: Succinylcholine/Sod PF 100 MG/5 ML SYRINGE IV ONE (08:23)
[2019-09-22] MEDS ORDERED: Midazolam 1 MG/ML 2 ML SDV ONE (08:23)
[2019-09-22] MEDS ORDERED: HYDROmorphone 2 MG/ML Syringe ONE (08:24)
[2019-09-22] MEDS ORDERED: Sodium Chloride 0.9% 20 ML ONE (08:24)
[2019-09-22] MEDS ORDERED: Ketorolac 30 MG/ML SDV ONE (08:24)
[2019-09-22] MEDS: Pantoprazole 40 MG in Sodium Chloride 0.9% 10 ML IV SCH (08:41)
[2019-09-22] MEDS ORDERED: Octyl 2-Cyanoacrylate 1 Tube ONE (09:24)
[2019-09-22] MEDS ORDERED: Bupivacaine 0.5% 30 ML SDV ONE (09:24)
[2019-09-22] MEDS ORDERED: 50% Dextrose in Water 50 ML Syringe IVPUSH PRN (10:35)
[2019-09-22] MEDS ORDERED: Albuterol 0.083% 2.5 MG/3 ML Neb Soln NEB PRN (10:35)
[2019-09-22] MEDS ORDERED: Naloxone 0.4 MG/ML Syringe IVPUSH PRN (10:35)
[2019-09-22] MEDS ORDERED: EPINEPHrine 1:10,000 1 MG/10 ML Syringe IVPUSH PRN (10:35)
[2019-09-22] MEDS ORDERED: Atropine 0.1 MG/ML 10 ML Syringe IVPUSH PRN ×2 (10:35)
[2019-09-22] MEDS ORDERED: fentaNYL 100 MCG/2 ML SDV IVPUSH PRN (10:35)
[2019-09-22] MEDS ORDERED: Acetaminophen/oxyCODONE 325-5 MG Tab PO PRN (11:46)
--- NOTE | 2019-09-22 11:47 | PCM.OPNOTE ---
- General Post-Op/Procedure Note Date of Surgery/Procedure: 09/22/19 Operative Procedure(s): Laparoscopic appendectomy Findings: Dilated and inflamed appendix. No evidence of perforation Pre Op Diagnosis: appendicitis Post-Op Diagnosis: same Anesthesia Technique: General ET Tube Primary Surgeon: Estela Hughes Fluid Replacement, Intraop: 1,000 Output, Urine Amount: 150 EBL in mLs: 5 Condition: Stable Free Text/Narrative:: Intake & Output 09/21/19 09/22/19 09/22/19 22:59 06:59 14:59 Intake Total 757 Balance 757
[2019-09-22] MEDS ORDERED: Ondansetron 4 MG/2 ML SDV IVPUSH PRN (11:58)
--- NOTE | 2019-09-22 12:12 | PCM.POSTAN ---
POST ANESTHESIA ASSESSMENT - MENTAL STATUS Mental Status: Alert, Oriented - VITAL SIGNS Vital Signs: Last Vital Signs Temp 36.9 C 09/22/19 11:24 Pulse 59 L 09/22/19 12:09 Resp 12 09/22/19 12:09 BP 102/51 L 09/22/19 12:09 Pulse Ox 95 09/22/19 12:09 - RESPIRATORY Respiratory Status: Respiratory Rate WNL, Airway Patent, O2 Saturation Stable - CARDIOVASCULAR CV Status: Pulse Rate WNL, Blood Pressure Stable - GASTROINTESTINAL GI Status: No Symptoms - POST OP HYDRATION Hydration Status: Adequate & Stable
[2019-09-22] MEDS: Enoxaparin 40 MG/0.4 ML Syringe SUBCUT SCH (12:37)
[2019-09-22] MEDS ORDERED: Acetaminophen 325 MG Tab PO PRN (15:28)
[2019-09-22] MEDS: Ketorolac 15 MG/ML SDV IVPUSH PRN (17:30)
--- NOTE | 2019-09-22 17:44 | OR ---
SURGEON: ESTELA HUGHES MD DATE OF PROCEDURE: 09/22/2019 PREOPERATIVE DIAGNOSIS: Abdominal pain, possible appendicitis. POSTOPERATIVE DIAGNOSIS: Acute appendicitis. PROCEDURE PERFORMED: Laparoscopic appendectomy. PRIMARY SURGEON: Estela Hughes MD. ANESTHESIA: General endotracheal anesthesia. FLUIDS: 1000 mL crystalloid. ESTIMATED BLOOD LOSS: 5 mL. URINE OUTPUT: 150 mL. FINDINGS: Dilated and inflamed appendix with no evidence of perforation. COMPLICATIONS: None. INDICATIONS: The patient is a 44-year-old male who presented to the emergency room last night with generalized abdominal pain. His white count was within normal range, but he did have a neutropenic left shift. His CT scan was equivocal. He was admitted overnight for IV fluids, IV antibiotics, and bowel rest. This morning, his abdominal pain is now localized to the right lower quadrant and he has rebound and guarding. Given these physical findings, I told the patient that I believe he does have appendicitis and will need to undergo an appendectomy. I explained that I will proceed laparoscopically, but should I be unable to perform it safely, I will convert to open. I explained the procedure, expected perioperative course, and risks including bleeding, infection, or damage to the surrounding structures. The patient verbalized understanding and wishes to proceed. PROCEDURE IN DETAIL: The patient was brought into the OR and placed on the OR table in a supine position. A time-out was completed verifying the patient's name, age, date of , allergies, and procedure to be performed. General endotracheal anesthesia was induced. The left arm was tucked to the patient's side and a Chun catheter placed. The abdomen was prepped and draped in the usual standard fashion. I anesthetized an area 3 fingerbreadths below the left subcostal margin in the midclavicular line with 0.5% Marcaine plain. A 1 cm incision was made using an 11 blade. A 5 mm optical trocar was used to gain entry into the abdomen in the left upper quadrant. All layers of the abdominal wall were visualized upon entry. The abdomen was insufflated and a 5 mm 30-degree scope was inserted. I inspected the area underneath my initial trocar placement. No damage to surrounding structures was noted. A 5 mm trocar was placed just left and lateral of the umbilicus. I then placed a 12 mm trocar along the lower midline under direct visualization. The patient was placed into Trendelenburg position and airplaned slightly to the left. I identified the terminal ileum and the ileocecal fat pad. This led up to the cecum. I followed the tenia down to the base of the appendix. I identified the base of the appendix. The distal ileum was swept upwards, and I identified the tip of the appendix. The tip of the appendix as well as the body of the appendix appeared grossly inflamed and enlarged. The appendiceal mesentery was grossly inflamed. I grasped the tip of the appendix and started to take down the distal appendiceal mesentery using a Harmonic scalpel device. I ended up resecting part of the distal fat. This was placed in an Endo Catch bag and removed through the 12 mm port site. The 12 mm port was replaced, and I then grasped the appendix again and continued my dissection from distal to proximal. I the appendix from the appendiceal mesentery down to the base of the appendix. At the base of the appendix, great care was taken to avoid cautery damage to the surrounding structures. Once I got near the base, I used a [place] dissector to dissect away any other retroperitoneal and appendiceal mesentery attachments. Once I was ensured that I had completely mobilized my appendix, an endoscopic stapling device was brought into the field. I stapled and transected across the base of the appendix using a 45 mm blue load of kiersten. The appendix was placed in an Endo Catch bag and removed through the 12 mm port site. The port was replaced, and I inspected my operative field. It appeared to be hemostatic and the staple line was intact. There was no free fluid or purulent material around the area, so no irrigation was performed. The 12 mm trocar was removed, and I closed the fascia at the inferior midline port site using an interrupted 0 Vicryl suture with a Reji-Zi device. The abdomen was allowed to desufflate, and I removed my 5 mm trocars under direct visualization. The subcutaneous fat layers from my port sites were closed with interrupted 3-0 Vicryl sutures. I then closed my skin with running 4-0 Monocryl sutures. Steri-Strips and sterile dressings were applied. The patient tolerated the procedure well and was taken to PACU in stable condition. All counts were complete and correct at the end of the case. YINKA / GABRIELA /[id number]
[2019-09-22] MEDS: oxyCODONE 5 MG Tab PO PRN (23:54)
[2019-09-23] MEDS: Ketorolac 15 MG/ML SDV IVPUSH PRN (00:52)
--- NOTE | 2019-09-23 07:30 | PCM.DCSUM1 ---
Discharge Summary - Hospital Course Free Text/Narrative:: Patient is a 44 year old male who presented to the ER with a one day history of abdominal pain. He had a normal WBC and an equivocal CT abdomen pelvis with questionable enlargement of the appendix. He was admitted for observation. He was made NPO, given IV antibiotics, and IV fluids. The next morning the pain was located in his RLQ and was associated with rebound and guarding. I told the patient he likely had appendicitis. He was taken to the OR and underwent a laparoscopic appendectomy. The appendix was enlarged and inflamed with no evidence of perforation. It was clearly appendicitis. The patient felt much better afterwards. He refused pain medications, but then had pain later on that evening. He was given IV toradol with good control of his symptoms. He is tolerating a regular diet. His vital signs were stable. He was afebrile. He was cleared for discharge. The patient has diabetes but did not know what medications he was taking. He will be scheduled with a PCP. He also was noted to have a small nodule in the RLL lung. Will follow this up as an outpatient with more imaging. - Discharge Data Discharge Date: 09/23/19 Discharge Disposition: Home, Self-Care 01 Condition: Stable - Referral to Home Health Primary Care Physician: PCP None - Discharge Diagnosis/Problem(s) (1) Abdominal pain SNOMED Code(s): 96310988 ICD Code: R10.9 - UNSPECIFIED ABDOMINAL PAIN Status: Acute Current Visit : Yes - Patient Summary/Data Operative Procedure(s) Performed: Laparoscopic appendectomy - Patient Instructions Diet: Regular Diet as Tolerated Activity: No Lifting Over 20 Pounds (for four weeks ), Rest and Relax Today Driving: Do Not Drive Showering/Bathing: No Showering (until tomorrow), No Tub Bathing/Swimming (for 2 weeks ) Notify Provider of: Fever, Increased Pain, Swelling and Redness, Drainage, Nausea and/or Vomiting - Discharge Plan *PRESCRIPTION DRUG MONITORING PROGRAM REVIEWED*: Not Applicable *COPY OF PRESCRIPTION DRUG MONITORING REPORT IN PATIENT MARY: Not Applicable Home Medications: Home Meds . [No Known Home Meds] 11/24/14 [History] Patient Handouts: Acetaminophen; Oxycodone tablets, Laparoscopic Appendectomy, Adult, Care After, [id number], Ketorolac tablets, Appendicitis, Adult, Easy-to -Read Referrals: Estela Hughes MD [Physician] - 10/04/19 8:30 am Lidia Hunter NP [Nurse Practitioner] - 09/30/19 4:30 pm - Discharge Summary/Plan Comment DC Time >30 min.: No - General Info Functional Status: Reports: Pain Controlled, Tolerating Diet, Ambulating, Urinating - Review of Systems General: Reports: No Symptoms HEENT: Reports: No Symptoms Pulmonary: Reports: No Symptoms Cardiovascular: Reports: No Symptoms Gastrointestinal: Reports: No Symptoms Musculoskeletal: Reports: No Symptoms Skin: Reports: No Symptoms Neurological: Reports: No Symptoms - Patient Data Vitals - Most Recent: Last Vital Signs Temp 37.3 C 09/23/19 04:00 Pulse 80 09/23/19 04:00 Resp 16 09/23/19 04:00 BP 116/68 09/23/19 04:00 Pulse Ox 97 09/23/19 04:00 Weight - Most Recent: 95.3 kg I&O - Last 24 hours: Intake & Output 09/22/19 09/23/19 09/23/19 22:59 06:59 14:59 Intake Total 300 450 Output Total 100 550 Balance 200 -100 Lab Results - Last 24 hrs: Laboratory Results - last 24 hr 09/22/19 09/22/19 09/22/19 Range/Units 07:30 11:40 12:33 POC Glucose 144 H 156 H (60-110) mg/dL SARS-CoV-2 RNA (RT-PCR) NEGATIVE (NEGATIVE) 09/22/19 09/22/19 09/23/19 Range/Units 15:10 17:25 06:27 POC Glucose 138 H 166 H 136 H (60-110) mg/dL SARS-CoV-2 RNA (RT-PCR) (NEGATIVE) Med Orders - Current: Current Medications Acetaminophen (Tylenol) 650 mg PO Q6H PRN PRN Reason: Pain (mild 1-3) Last Admin: 09/22/19 15:37 Dose: 650 mg Diphenhydramine HCl (Benadryl) 25 mg IVPUSH Q4H PRN PRN Reason: Itching Enoxaparin Sodium (Lovenox) 40 mg SUBCUT Q24H CHAR Last Admin: 09/22/19 12:37 Dose: 40 mg Hydromorphone HCl (Dilaudid) 0.5 mg IVPUSH Q1H PRN PRN Reason: Pain Pantoprazole Sodium 40 mg/ (Sodium Chloride) 10 mls @ 300 mls/hr IV DAILY [facility] Last Admin: 09/22/19 08:41 Dose: 300 mls/hr Insulin Aspart (Novolog) 0 unit SUBCUT TIDAC CHAR; Protocol Last Admin: 09/22/19 17:37 Dose: 1 units Ketorolac Tromethamine (Toradol) 15 mg IVPUSH Q6H PRN PRN Reason: Pain Stop: 09/26/19 21:22 Last Admin: 09/23/19 00:52 Dose: 15 mg Ondansetron HCl (Zofran) 4 mg IVPUSH Q6H PRN PRN Reason: Nausea/Vomiting Oxycodone HCl (Oxycodone) 10 mg PO Q4H PRN PRN Reason: Pain (severe 7-10) Last Admin: 09/22/19 23:54 Dose: 10 mg Sodium Chloride (Saline Flush) 10 ml FLUSH ASDIRECTED PRN PRN Reason: Keep Vein Open Last Admin: 09/21/19 17:33 Dose: 10 ml Sodium Chloride (Saline Flush) 2.5 ml FLUSH ASDIRECTED PRN PRN Reason: Keep Vein Open Last Admin: 09/21/19 17:33 Dose: 2.5 ml Sodium Chloride (Saline Flush) 10 ml FLUSH ASDIRECTED PRN PRN Reason: Keep Vein Open Sodium Chloride (Saline Flush) 2.5 ml FLUSH ASDIRECTED PRN PRN Reason: Keep Vein Open Sodium Chloride (Normal Saline) 10 ml IV ASDIRECTED PRN PRN Reason: IV Use Discontinued Medications Acetaminophen (Tylenol) 650 mg PO NOW ONE Stop: 09/21/19 23:54 Last Admin: 09/22/19 00:14 Dose: 650 mg Albuterol (Proventil Neb Soln) 2.5 mg NEB ONETIME PRN PRN Reason: Wheezing Atropine Sulfate (Atropine 0.1 Mg/Ml) 0.5 mg IVPUSH ASDIRECTED PRN PRN Reason: Hypo-perfusion Atropine Sulfate (Atropine 0.1 Mg/Ml) 1 mg IVPUSH ASDIRECTED PRN PRN Reason: Hypo-Perfusion Bupivacaine HCl (Marcaine 0.5%) Confirm Administered Dose 30 ml .ROUTE .STK-MED ONE Stop: 09/22/19 09:25 Dextrose/Water (Dextrose 50% In Water) 50 ml IVPUSH ASDIRECTED PRN PRN Reason: Hypoglycemia Epinephrine HCl (Epinephrine 1:10,000) 1 mg IVPUSH ASDIRECTED PRN PRN Reason: ACLS Guidelines Fentanyl (Sublimaze) 50 mcg IVPUSH ONETIME ONE Stop: 09/21/19 17:15 Last Admin: 09/21/19 17:32 Dose: 50 mcg Fentanyl (Sublimaze) 50 mcg IVPUSH ONETIME ONE Stop: 09/21/19 19:15 Last Admin: 09/21/19 19:24 Dose: 50 mcg Fentanyl (Sublimaze) Confirm Administered Dose 100 mcg .ROUTE .STK-MED ONE Stop: 09/22/19 08:24 Fentanyl (Sublimaze) 50 mcg IVPUSH Q5M PRN PRN Reason: Pain Glycopyrrolate (Robinul) Confirm Administered Dose 0.8 mg .ROUTE .STK-MED ONE Stop: 09/22/19 08:24 Hydromorphone HCl (Dilaudid) 0.5 mg IVPUSH ONETIME ONE Stop: 09/21/19 20:32 Last Admin: 09/21/19 20:38 Dose: 0.5 mg Hydromorphone HCl (Dilaudid) Confirm Administered Dose 2 mg .ROUTE .STK-MED ONE Stop: 09/22/19 08:25 Sodium Chloride (Normal Saline) 1,000 mls @ 999 mls/hr IV BOLUS ONE Stop: 09/21/19 18:11 Last Admin: 09/21/19 17:33 Dose: 999 mls/hr Lactated Ringer's (Ringers, Lactated) 1,000 mls @ 150 mls/hr IV ASDIRECTED [facility] Last Admin: 09/21/19 19:43 Dose: 150 mls/hr Piperacillin Sod/Tazobactam (Sod 3.375 gm/ Sodium Chloride) 50 mls @ 100 mls/ hr IV ONETIME ONE Stop: 09/21/19 21:02 Last Admin: 09/21/19 20:41 Dose: 100 mls/hr Sodium Chloride (Normal Saline) 1,000 mls @ 125 mls/hr IV ASDIRECTED [facility] Last Admin: 09/22/19 05:31 Dose: 125 mls/hr Piperacillin Sod/Tazobactam (Sod 3.375 gm/ Sodium Chloride) 50 mls @ 100 mls/ hr IV Q6H CHAR Last Admin: 09/22/19 08:41 Dose: 100 mls/hr Sodium Chloride (Normal Saline) Confirm Administered Dose 20 mls @ as directed .ROUTE .STK-MED ONE Stop: 09/22/19 08:25 Iopamidol (Isovue-370 (76%)) 100 ml IVPUSH ONETIME STA Stop: 09/21/19 18:11 Last Admin: 09/21/19 18:11 Dose: 100 ml Ketorolac Tromethamine (Toradol) Confirm Administered Dose 30 mg .ROUTE .STK- MED ONE Stop: 09/22/19 08:25 Lidocaine HCl (Xylocaine 2%) Confirm Administered Dose 100 mg .ROUTE .STK-MED ONE Stop: 09/22/19 08:24 Metoclopramide HCl (Reglan) 10 mg IV ONETIME ONE Stop: 09/21/19 21:23 Last Admin: 09/21/19 22:04 Dose: 10 mg Midazolam HCl (Versed 1 Mg/Ml) Confirm Administered Dose 2 mg .ROUTE .STK-MED ONE Stop: 09/22/19 08:24 Naloxone HCl (Narcan) 0.1 mg IVPUSH ASDIRECTED PRN PRN Reason: Respiratory Depression Octyl Cyanoacrylate (Dermabond Advance) Confirm Administered Dose 1 applic .ROUTE .STK-MED ONE Stop: 09/22/19 09:25 Ondansetron HCl (Zofran) 4 mg IVPUSH ONETIME ONE Stop: 09/21/19 17:12 Last Admin: 09/21/19 17:32 Dose: 4 mg Ondansetron HCl (Zofran) 4 mg IVPUSH ONETIME ONE Stop: 09/21/19 19:45 Last Admin: 09/21/19 19:46 Dose: 4 mg Ondansetron HCl (Zofran) Confirm Administered Dose 4 mg .ROUTE .STK-MED ONE Stop: 09/21/19 19:46 Last Admin: 09/22/19 16:13 Dose: Not Given Ondansetron HCl (Zofran) Confirm Administered Dose 4 mg .ROUTE .STK-MED ONE Stop: 09/22/19 08:24 Ondansetron HCl (Zofran) 4 mg IVPUSH Q4H PRN PRN Reason: Nausea/Vomiting Last Admin: 09/22/19 11:58 Dose: 4 mg Oxycodone/Acetaminophen (Percocet 325-5 Mg) 2 tab PO Q4H PRN PRN Reason: Pain (severe 7-10) Propofol (Diprivan 20 Ml) Confirm Administered Dose 400 mg .ROUTE .STK-MED ONE Stop: 09/22/19 08:24 Rocuronium [place] (Zemuron) Confirm Administered Dose 100 mg .ROUTE .STK-MED ONE Stop: 09/22/19 08:24 - Exam General: Reports: Alert, Oriented HEENT: Reports: Pupils Equal, Pupils Reactive Neck: Reports: Supple Lungs: Reports: Normal Respiratory Effort Cardiovascular: Reports: Regular Rate GI/Abdominal Exam: Soft, Non-Tender, No Distention, No Mass Skin: Reports: Warm, Dry, Intact Wound/Incisions: Reports: Healing Well, Dressing Dry and Intact
--- NOTE | 2019-09-23 08:12 | PCM48HPAN ---
Post Anesthesia Note - EVALUATION WITHIN 48HRS OF ANESTHETIC Vital Signs in Normal Range: Yes Patient Participated in Evaluation: Yes Respiratory Function Stable: Yes Airway Patent: Yes Cardiovascular Function Stable: Yes Hydration Status Stable: Yes Pain Control Satisfactory: Yes Nausea and Vomiting Control Satisfactory: Yes Mental Status Recovered: Yes Vital Signs: Last Vital Signs Temp 37.1 C 09/23/19 07:05 Pulse 64 09/23/19 07:05 Resp 16 09/23/19 07:05 BP 126/71 09/23/19 07:05 Pulse Ox 97 09/23/19 07:05
[2019-09-23] MEDS: Insulin Aspart 100 Units/ML 3 ML Pen SUBCUT SCH ×2 (08:15→12:19)
[2019-09-23] MEDS: Pantoprazole 40 MG in Sodium Chloride 0.9% 10 ML IV SCH (09:08)
[2019-09-23] MEDS: oxyCODONE 5 MG Tab PO PRN (11:13)
[2019-09-23] MEDS: Enoxaparin 40 MG/0.4 ML Syringe SUBCUT SCH (11:14)
[2019-09-23 12:26] VITALS: BP 106/61; PULSE 56
== END 2019-09-23 15:30 | disposition home or self-care (01) ==
LOC: MW.ED 16:19 → MW.MS 20:48
PROVIDERS: ADMIT Surgery; ATTEND Surgery
DX: K35.80 Unspecified acute appendicitis (principal); E11.9 Type 2 diabetes mellitus without complications; E78.00 Pure hypercholesterolemia, unspecified
CPT/HCPCS: 36415; 44970; 74177; 80053; 81001; 82150; 82962; 83036; 83690; 85025; 87635; 96361; 96365; 96375; 96376; 99285; A9270; C9113; G0378; J0330; J1170; J1650; J1815; J1885; J2001; J2250; J2405; J2543; J2704; J2765; J3010; J3490; J7030; J7050; J7120; Q9967; 88304; 99284; U0002

== ENCOUNTER 2020-12-30 22:00 | Emergency (ER) | payer MEDICARE, OTHER ==
[2020-12-30] MEDS ORDERED: Sodium Chloride 0.9% 10 ML Syringe FLUSH PRN (22:46)
[2020-12-30] MEDS ORDERED: Ondansetron 4 MG/2 ML SDV IVPUSH ONE (22:46)
[2020-12-30] MEDS ORDERED: Sodium Chloride 0.9% 2.5 ML Syringe FLUSH PRN (22:46)
[2020-12-30] MEDS ORDERED: Sodium Chloride 0.9% 1,000 ML IV ONE (22:47)
--- NOTE | 2020-12-30 22:56 | EDM.PDOC ---
ED HPI GENERAL MEDICAL PROBLEM - General Chief Complaint: General Stated Complaint: CHILLS, BODY ACHES Time Seen by Provider: 12/30/20 22:23 - History of Present Illness INITIAL COMMENTS - FREE TEXT/NARRATIVE: History of present illness: [] The patient reports he has a headache illness with fever that started this morning. He has a minimal cough. He is nauseated. Has an appetite that is more than usual but he does not eat before he satiated quickly. He has a lot of thirst and not passing a lot of urine. He is a known diabetic. He is on oral medication only. Review of systems: As per history of present illness and below otherwise all systems reviewed and negative. Past medical history: As per history of present illness and as reviewed below otherwise noncontributory. Surgical history: As per history of present illness and as reviewed below otherwise noncontributory. Social history: No reported history of drug or alcohol abuse. Family history: As per history of present illness and as reviewed below otherwise noncontributory. Physical exam: Constitutional - well developed, well-nourished and in no acute distress HEENT -pharynx normal normocephalic, no evidence of trauma - external nose and mouth normal - no mass in neck and no JVD - mucosae moist EYES - full EOM, PERRL, no icterus - no evidence of inflammation, injection, or drainage Respiratory - no respiratory distress, equal bilateral expansion, lungs clear to auscultation and no abnormal lung sounds Cardiovascular - Regular Rhythm with S1 and S2 appreciated and no murmur, gallop or rub. GI - abdomen soft without distension or organomegaly - normal bowel sounds - no guard or rebound Musculoskeletal no gross deformity of long bones or joints - no tenderness, swelling or edema Neurologic - Alert and oriented times four - CN II-XII grossly intact - motor sensory and coordination symmetrically normal Psychiatric - appropriate mood and affect with normal thought content Hematologic - No petechiae or purpura - mucosa appropriate color and sclera not pale - normal nail bed color and refill Integument - no rash or evidence of trauma - normal turgor Diagnostics: [] Therapeutics: [] Impression: [] Plan: [] Definitive disposition and diagnosis as appropriate pending reevaluation and review of above. - Related Data Allergies Allergy/AdvReac Type Severity Reaction Status Date / Time No Known Allergies Allergy Verified 12/30/20 22:22 Home Meds: Home Meds metFORMIN [Glucophage XR] mg PO BID 12/30/20 [History] Ondansetron [Zofran ODT] 4 mg PO Q6H PRN #10 tab.dis 12/31/20 [Rx] Past Medical History Cardiovascular History: Reports: High Cholesterol Gastrointestinal History: Reports: Other (See Below) Other Gastrointestinal History: Colitis Endocrine/Metabolic History: Reports: Diabetes, Type II - Infectious Disease History Infectious Disease History: Reports: None - Past Surgical History Head Surgeries/Procedures: Reports: None Social & Family History - Family History Family Medical History: Unobtainable - Tobacco Use Tobacco Use Status *Q: Never Tobacco User - Caffeine Use Caffeine Use: Reports: Coffee - Recreational Drug Use Recreational Drug Use: No ED ROS GENERAL - Review of Systems Review Of Systems: Comprehensive ROS is negative, except as noted in HPI. ED EXAM, GENERAL - Physical Exam Exam: See Below Free Text/Narrative:: My physical exam is in the HPI Course - Vital Signs Text/Narrative:: 0023 hrs. patient tolerated low sugar Gatorade. He understands instructions. Last Recorded V/S: Last Vital Signs Temp 38.9 C H 12/30/20 22:18 Pulse 102 H 12/31/20 00:00 Resp 18 12/31/20 00:00 BP 119/72 12/31/20 00:00 Pulse Ox 96 12/31/20 00:00 - Orders/Labs/Meds Orders: Active Orders 24 hr Category Date Time Status Blood Glucose Check, Bedside [] ONETIME Care 12/31/20 00:45 Active Dextrose 50% in Water Med 12/30/20 23:47 Active 50 ml IVPUSH ASDIRECTED PRN Glucagon,Human Recombinant [GlucaGen] Med 12/30/20 23:47 Active 1 mg IM ASDIRECTED PRN Sodium Chloride 0.9% [Saline Flush] Med 12/30/20 22:46 Active 10 ml FLUSH ASDIRECTED PRN Sodium Chloride 0.9% [Saline Flush] Med 12/30/20 22:46 Active 2.5 ml FLUSH ASDIRECTED PRN Saline Lock Insert [OM.PC] Stat Oth 12/30/20 22:46 Ordered Medication Orders Dextrose/Water (50% Dextrose In Water 50 Ml Syringe) 50 ml IVPUSH ASDIRECTED PRN PRN Reason: Hypoglycemia Glucagon (Glucagon,Human Recombinant 1 Mg Vial) 1 mg IM ASDIRECTED PRN PRN Reason: Hypoglycemia Sodium Chloride (Sodium Chloride 0.9% 10 Ml Syringe) 10 ml FLUSH ASDIRECTED PRN PRN Reason: Keep Vein Open Sodium Chloride (Sodium Chloride 0.9% 2.5 Ml Syringe) 2.5 ml FLUSH ASDIRECTED PRN PRN Reason: Keep Vein Open Labs: Laboratory Tests 12/30/20 12/30/20 12/30/20 Range/Units 22:28 22:40 23:00 WBC 10.11 (4.0-11.0) K/uL RBC 5.00 (4.50-5.90) M/uL Hgb 15.1 (13.0-17.0) g/dL Hct 41.9 (38.0-50.0) % MCV 83.8 (80.0-98.0) fL MCH 30.2 (27.0-32.0) pg MCHC 36.0 (31.0-37.0) g/dL RDW Std Deviation 38.0 (28.0-62.0) fl RDW Coeff of Marisol 13 (11.0-15.0) % Plt Count 148 L (150-400) K/uL MPV 12.00 (7.40-12.00) fL Neut % (Auto) 80.0 (48.0-80.0) % Lymph % (Auto) 10.5 L (16.0-40.0) % Noble % (Auto) 8.2 (0.0-15.0) % Eos % (Auto) 1.1 (0.0-7.0) % Baso % (Auto) 0.2 (0.0-1.5) % Neut # (Auto) 8.1 H (1.4-5.7) K/uL Lymph # (Auto) 1.1 (0.6-2.4) K/uL Noble # (Auto) 0.8 (0.0-0.8) K/uL Eos # (Auto) 0.1 (0.0-0.7) K/uL Baso # (Auto) 0.0 (0.0-0.1) K/uL Nucleated RBC % 0.0 /100WBC Nucleated RBCs # 0 K/uL Sodium (136-148) mmol/L Potassium (3.5-5.1) mmol/L Chloride (98-107) mmol/L Carbon Dioxide (21.0-32.0) mmol/L BUN (7.0-18.0) mg/dL Creatinine (0.8-1.3) mg/dL Est Cr Clr Drug Dosing mL/min Estimated GFR (MDRD) ml/min Glucose (74-106) mg/dL POC Glucose 323 H (70-99) mg/dL Lactic Acid (0.4-2.0) mmol/L Calcium (8.5-10.1) mg/dL Total Bilirubin (0.2-1.0) mg/dL AST (15-37) IU/L ALT (14-63) IU/L Alkaline Phosphatase (46-116) U/L Total Protein (6.4-8.2) g/dL Albumin (3.4-5.0) g/dL Globulin (2.6-4.0) g/dL Albumin/Globulin Ratio (0.9-1.6) Ketones (NEG) Influenza Type A RNA NEGATIVE (NEGATIVE) RSV RNA (INAAT) NEGATIVE (NEGATIVE) Influenza Type B RNA NEGATIVE (NEGATIVE) SARS-CoV-2 RNA (HARRY) NEGATIVE (NEGATIVE) 12/30/20 12/30/20 12/30/20 Range/Units 23:00 23:00 23:00 WBC (4.0-11.0) K/uL RBC (4.50-5.90) M/uL Hgb (13.0-17.0) g/dL Hct (38.0-50.0) % MCV (80.0-98.0) fL MCH (27.0-32.0) pg MCHC (31.0-37.0) g/dL RDW Std Deviation (28.0-62.0) fl RDW Coeff of Marisol (11.0-15.0) % Plt Count (150-400) K/uL MPV (7.40-12.00) fL Neut % (Auto) (48.0-80.0) % Lymph % (Auto) (16.0-40.0) % Noble % (Auto) (0.0-15.0) % Eos % (Auto) (0.0-7.0) % Baso % (Auto) (0.0-1.5) % Neut # (Auto) (1.4-5.7) K/uL Lymph # (Auto) (0.6-2.4) K/uL Noble # (Auto) (0.0-0.8) K/uL Eos # (Auto) (0.0-0.7) K/uL Baso # (Auto) (0.0-0.1) K/uL Nucleated RBC % /100WBC Nucleated RBCs # K/uL Sodium 131 L (136-148) mmol/L Potassium 4.1 (3.5-5.1) mmol/L Chloride 98 (98-107) mmol/L Carbon Dioxide 24.2 (21.0-32.0) mmol/L BUN 12 (7.0-18.0) mg/dL Creatinine 0.9 (0.8-1.3) mg/dL Est Cr Clr Drug Dosing 114.96 mL/min Estimated GFR (MDRD) > 60.0 ml/min Glucose 314 H (74-106) mg/dL POC Glucose (70-99) mg/dL Lactic Acid 1.0 (0.4-2.0) mmol/L Calcium 8.3 L (8.5-10.1) mg/dL Total Bilirubin 1.3 H (0.2-1.0) mg/dL AST 26 (15-37) IU/L ALT 48 (14-63) IU/L Alkaline Phosphatase 222 H (46-116) U/L Total Protein 7.5 (6.4-8.2) g/dL Albumin 3.5 (3.4-5.0) g/dL Globulin 4.0 (2.6-4.0) g/dL Albumin/Globulin Ratio 0.9 (0.9-1.6) Ketones NEGATIVE (NEG) Influenza Type A RNA (NEGATIVE) RSV RNA (INAAT) (NEGATIVE) Influenza Type B RNA (NEGATIVE) SARS-CoV-2 RNA (HARRY) (NEGATIVE) Meds: Medications Generic Name Dose Route Start Last Admin Trade Name Freq PRN Reason Stop Dose Admin Dextrose/Water 50 ml 12/30/20 23:47 50% Dextrose In Water 50 Ml Syringe IVPUSH ASDIRECTED PRN Hypoglycemia Glucagon 1 mg 12/30/20 23:47 Glucagon,Human Recombinant 1 Mg Vial IM ASDIRECTED PRN Hypoglycemia Sodium Chloride 10 ml 12/30/20 22:46 Sodium Chloride 0.9% 10 Ml Syringe FLUSH ASDIRECTED PRN Keep Vein Open Sodium Chloride 2.5 ml 12/30/20 22:46 Sodium Chloride 0.9% 2.5 Ml Syringe FLUSH ASDIRECTED PRN Keep Vein Open Discontinued Medications Generic Name Dose Route Start Last Admin Trade Name Freq PRN Reason Stop Dose Admin Sodium Chloride 1,000 mls @ 1,000 mls/hr 12/30/20 22:47 12/30/20 23:13 Normal Saline IV 12/30/20 23:46 1,000 mls/hr .Bolus ONE Administration Insulin Human Regular 8 unit 12/30/20 23:47 12/30/20 23:58 Insulin Regular, Human 100 Units/Ml 10 Ml Vial IVPUSH 12/30/20 23:48 8 unit ONETIME ONE Administration Protocol Ondansetron HCl 4 mg 12/30/20 22:46 12/30/20 23:13 Ondansetron 4 Mg/2 Ml Sdv IVPUSH 12/30/20 22:47 4 mg ONETIME ONE Administration Departure - Departure Time of Disposition: 00:23 Disposition: Home, Self-Care 01 Condition: Good Clinical Impression: Hyperglycemia, Gastritis - Discharge Information Instructions: Hyperglycemia, [id number], Gastritis, Adult, [id number] Referrals: PCP,None [Primary Care Provider] - Forms: ED Department Discharge Additional Instructions: Take 2 Metformin pills morning and night until you follow in the clinic within [address] [facility] - Primary Care [address] [place] [id number] [address] The following information is given to patients seen in the emergency department who are being discharged to home. This information is to outline your options for follow-up care. We provide all patients seen in our emergency department with a follow-up referral. The need for follow-up, as well as the timing and circumstances, are variable d epending upon the specifics of your emergency department visit. If you don't have a primary care physician on staff, we will provide you with a referral. We always advise you to contact your personal physician following an emergency department visit to inform them of the circumstance of the visit and for follow-up with them and/or the need for any referrals to a consulting specialist. The emergency department will also refer you to a specialist when appropriate. This referral assures that you have the opportunity for follow-up care with a specialist. All of these measure are taken in an effort to provide you with optimal care, which includes your follow-up. Under all circumstances we always encourage you to contact your private physician who remains a resource for coordinating your care. When calling for follow-up care, please make the office aware that this follow-up is from your recent emergency room visit. If for any reason you are refused follow-up, please contact the [facility] Emergency Department at and asked to speak to the emergency department charge nurse. Sepsis Event Note (ED) - Evaluation Sepsis Screening Result: Possible Severe Sepsis Risk - Focused Exam Vital Signs: Vital Signs Temp Pulse Resp BP Pulse Ox 12/31/20 00:00 102 H 18 119/72 96 12/30/20 22:18 38.9 C H 115 H 18 130/84 96 - My Orders Last 24 Hours: My Active Orders 12/30/20 22:46 Sodium Chloride 0.9% [Saline Flush] 10 ml FLUSH ASDIRECTED PRN Sodium Chloride 0.9% [Saline Flush] 2.5 ml FLUSH ASDIRECTED PRN Saline Lock Insert [OM.PC] Stat 12/30/20 23:47 Dextrose 50% in Water 50 ml IVPUSH ASDIRECTED PRN Glucagon,Human Recombinant [GlucaGen] 1 mg IM ASDIRECTED PRN 12/31/20 00:45 Blood Glucose Check, Bedside [RC] ONETIME - Assessment/Plan Last 24 Hours: My Active Orders 12/30/20 22:46 Sodium Chloride 0.9% [Saline Flush] 10 ml FLUSH ASDIRECTED PRN Sodium Chloride 0.9% [Saline Flush] 2.5 ml FLUSH ASDIRECTED PRN Saline Lock Insert [OM.PC] Stat 12/30/20 23:47 Dextrose 50% in Water 50 ml IVPUSH ASDIRECTED PRN Glucagon,Human Recombinant [GlucaGen] 1 mg IM ASDIRECTED PRN 12/31/20 00:45 Blood Glucose Check, Bedside [RC] ONETIME
[2020-12-30 23:29] LABS: CORONAVIRUS COVID-19 NAA NEGATIVE (NEGATIVE); INFLUENZA A NAA NEGATIVE (NEGATIVE); INFLUENZA B NAA NEGATIVE (NEGATIVE); RESPIRATORY SYNCYTIAL VIR NAA NEGATIVE (NEGATIVE)
[2020-12-30 23:31] LABS: BLOOD UREA NITROGEN,BUN 12 mg/dL (7.0-18.0); CARBON DIOXIDE,CO2 24.2 mmol/L (21.0-32.0); CHLORIDE,CL 98 mmol/L (98-107); GLUCOSE RANDOM 314 mg/dL (74-106); POTASSIUM,K 4.1 mmol/L (3.5-5.1); SODIUM,NA 131 mmol/L (136-148)
[2020-12-30] MEDS ORDERED: Glucagon,Human Recombinant 1 MG Vial IM PRN (23:47)
[2020-12-30] MEDS ORDERED: Insulin Regular, Human 100 Units/ML 10 ML Vial IVPUSH ONE (23:47)
[2020-12-30] MEDS ORDERED: 50% Dextrose in Water 50 ML Syringe IVPUSH PRN (23:47)
--- NOTE | 2020-12-30 23:58 | CR ---
Indication: Fever Technique: Chest 1 view Comparison: None Findings/Impression: Normal cardiomediastinal silhouette. Ill-defined opacities at the medial right lung base. This could represent atelectasis or infection. No effusion pneumothorax. No acute osseous abnormality. Dictated by Ana María Puga MD @ 12/30/2020 11:57:07 PM (Electronically Signed)
[2020-12-31] VITALS: BP 119/72; PULSE 102
== END 2020-12-30 23:35 | disposition home or self-care (01) ==
LOC: MW.ED 22:00
DX: K29.70 Gastritis, unspecified, without bleeding (principal); E11.65 Type 2 diabetes mellitus with hyperglycemia; E78.00 Pure hypercholesterolemia, unspecified; Z79.84 Long term (current) use of oral hypoglycemic drugs; Z20.822 Contact with and (suspected) exposure to COVID-19
CPT/HCPCS: 0241U; 36415; 71045; 80053; 82009; 82947; 83605; 85025; 96374; 99284; J2405; J7030; J1815-GY

== ENCOUNTER 2021-01-01 18:49 | Emergency (ER) | payer SELFPAY ==
[2021-01-01] MEDS ORDERED: Sodium Chloride 0.9% 1,000 ML IV ONE (21:45)
[2021-01-01] MEDS ORDERED: Acetaminophen 500 MG Tab PO ONE (21:45)
[2021-01-01] MEDS ORDERED: Metoclopramide 10 MG/2 ML SDV IV ONE (21:45)
[2021-01-01] MEDS ORDERED: diphenhydrAMINE 50 MG/ML SDV IVPUSH ONE (21:45)
[2021-01-01] MEDS ORDERED: Ondansetron 4 MG/2 ML SDV IVPUSH ONE (21:45)
--- NOTE | 2021-01-01 22:23 | EDM.PDOC ---
<Patrick Monaco - Last Filed: 01/01/21 22:37> ED HPI GENERAL MEDICAL PROBLEM - General Chief Complaint: Respiratory Problem Stated Complaint: BODY ACHES, CHILLS Time Seen by Provider: 01/01/21 19:40 - Related Data Allergies Allergy/AdvReac Type Severity Reaction Status Date / Time No Known Allergies Allergy Verified 01/01/21 19:30 Home Meds: Home Meds metFORMIN [Glucophage XR] mg PO BID 12/30/20 [History] Ondansetron [Zofran ODT] 4 mg PO Q6H PRN #10 tab.dis 12/31/20 [Rx] #1 Interpretation EKG Interpretation Comments: Heart rate = 99 bpm, normal sinus rhythm, normal QRS interval, no STEMI. EKG and rhythm [place] 1007p Course - Re-Assessments/Exams Free Text/Narrative Re-Assessment/Exam: 01/01/21 22:28 This patient was signed out to me from DIONISIO Mckeon at this time. I promptly performed a detailed physical examination, my examination was performed after ED treatments were initiated by the signout provider. Patient has been under the care of the previous provider up until this point. 01/01/21 23:17 After IV fluids, Reglan, Benadryl, Toradol, his headache improved and he is currently stable for discharge. I performed a repeat exam and did not appreciate new abnormal findings. Patient exhibits normal vital signs and has a normal gait on road test with no focal deficits.. I advised the patient to return to the ER for reevaluation if symptoms worsened, including fever, worsening pain, or any other worrisome symptoms. I instructed the patient to follow up with their PCP within 2-3 days. Departure - Departure Time of Disposition: 10:20 Disposition: Home, Self-Care 01 Condition: Good Clinical Impression: Headache - Discharge Information *PRESCRIPTION DRUG MONITORING PROGRAM REVIEWED*: Not Applicable *COPY OF PRESCRIPTION DRUG MONITORING REPORT IN PATIENT MARY: Not Applicable Instructions: General Headache Without Cause Referrals: PCP,None [Primary Care Provider] - Forms: ED Department Discharge Additional Instructions: The need for follow-up, as well as the timing and circumstances, are variable depending upon the specifics of your emergency department visit. If you don't have a primary care physician on staff, we will provide you with a referral. We always advise you to contact your personal physician following an emergency department visit to inform them of the circumstance of the visit and for follow-up with them and/or the need for any referrals to a consulting specialist. The emergency department will also refer you to a specialist when appropriate. This referral assures that you have the opportunity for follow-up care with a specialist. All of these measure are taken in an effort to provide you with optimal care, which includes your follow-up. Under all circumstances we always encourage you to contact your private physician who remains a resource for coordinating your care. When calling for follow-up care, please make the office aware that this follow-up is from your recent emergency room visit. If for any reason you are refused follow-up, please contact the [facility] Emergency Department at and asked to speak to the emergency department charge nurse. If you do not have a primary care doctor, please follow up with the clinics below within 3-5 days. 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 Patient states he initially came to the emergency room thinking he possibly had COVID-19 and states that he had a test that was negative. Patient states that he also has type 2 diabetes and was told that his blood sugars were higher so was given insulin which she states is helped his blood sugars. Patient states he continues to have worsening headaches and generalized body aches and "was not told why he was having these "at his last emergency room visit so decided to come back to the emergency room today. Patient denies any head injury or loss of consciousness but does state that "he has never had a headache like this before ". Patient denies any neck stiffness or back pain/stiffness. Patient states he has not taken any medications for his pain today. Patient states that he has been exposed to COVID-19 from a friend and is not vaccinated. Patient denies fever, chest pain, shortness of breath, or cough. Denies neck stiff ness, change in vision, syncope, or near syncope. Denies vomiting, abdominal pain, diarrhea, constipation, or dysuria. Has not noted any blood in urine or stool. Review of systems: As per history of present illness and below otherwise all systems reviewed and negative. Past medical history: As per history of present illness and as reviewed below otherwise noncontributory. Surgical history: As per history of present illness and as reviewed below otherwise noncontributory. Social history: See social history for further information Family history: As per history of present illness and as reviewed below otherwise noncontributory. Physical exam: General: Patient is alert, oriented, and in no acute distress. Patient sitting on exam table, periodically holding his head in his hands. Vitally stable and reviewed by me. HEENT: Atraumatic, normocephalic, pupils equal and reactive bilaterally, negative for conjunctival pallor or scleral icterus, mucous membranes moist, throat clear, neck supple, nontender, trachea midline. No drooling or trismus noted. No meningeal signs. No hot potato voice noted. Lungs: Clear to auscultation, breath sounds equal bilaterally, chest nontender. Heart: S1S2, regular rate and rhythm without overt murmur Abdomen: Soft, nondistended, nontender. Negative for masses or hepatosplenomegaly. Negative for costovertebral tenderness. Pelvis: Stable nontender. Genitourinary: Deferred. Rectal: Deferred. Skin: Intact, warm, dry. No lesions or rashes noted. Extremities: Atraumatic, negative for cords or calf pain. Neurovascular unremarkable. Neuro: Awake, alert, oriented. Cranial nerves II through XII unremarkable. Cerebellum unremarkable. Motor and sensory unremarkable throughout. Exam nonfocal. Notes: Patient is a 45-year-old male, who is primarily speaking, who presents emergency room today secondary to headache, chills, generalized body ache, and nausea x2 to 3 days. On chart review, patient was seen and evaluated in the ED on 12/30/2020 and at that time had basic lab work and COVID-19 test was negative and lab work which showed hyperglycemia otherwise unremarkable. Upon arrival to the ED today, patient is vitally stable, blood pressure is within normal limits, however, patient is holding his head in his hands and does state this headache is unlike any he has ever had before. Patient does not have any neck stiffness, no meningeal signs on exam, and has full range of motion of the spine without difficulty. Will repeat basic labwork, obtain head ct w/o cont, provide fluid bolus in therapeutics and reassess patient. Dr. Monaco has assumed care of patient and will follow remaining diagnostics and disposition for patient. Diagnostics: CBC, CMP, Head CT w/o cont, COVID19, Influenza Therapeutics: NS, Zofran, Benadryl, Tylenol, Reglan Prescription: Impression: Headache Generalized body aches Plan: Definitive disposition and diagnosis as appropriate pending reevaluation and review of above. Bilateral Head Pain Score (Numeric/FACES): 7 Past Medical History - Past Health History Medical/Surgical History: Denies Medical/Surgical History Cardiovascular History: Reports: High Cholesterol Gastrointestinal History: Reports: Other (See Below) Other Gastrointestinal History: Colitis Endocrine/Metabolic History: Reports: Diabetes, Type II - Infectious Disease History Infectious Disease History: Reports: None - Past Surgical History Head Surgeries/Procedures: Reports: None Social & Family History - Family History Family Medical History: Unobtainable - Tobacco Use Tobacco Use Status *Q: Never Tobacco User - Caffeine Use Caffeine Use: Reports: None - Recreational Drug Use Recreational Drug Use: No ED ROS GENERAL - Review of Systems Review Of Systems: Comprehensive ROS is negative, except as noted in HPI. ED EXAM, GENERAL - Physical Exam Exam: See Below (see dictation) Course - Vital Signs Last Recorded V/S: Last Vital Signs Temp 97.9 F 01/01/21 20:49 Pulse 78 01/02/21 00:12 Resp 16 01/02/21 00:12 BP 105/55 L 01/02/21 00:12 Pulse Ox 95 01/02/21 00:12 - Orders/Labs/Meds Orders: Active Orders 24 hr Category Date Time Status Isolation [COMM] Routine Oth 01/01/21 22:16 Active Labs: Laboratory Tests 01/01/21 01/01/21 01/01/21 Range/Units 20:47 22:00 22:00 WBC 7.79 (4.0-11.0) K/uL RBC 4.99 (4.50-5.90) M/uL Hgb 14.9 (13.0-17.0) g/dL Hct 41.3 (38.0-50.0) % MCV 82.8 (80.0-98.0) fL MCH 29.9 (27.0-32.0) pg MCHC 36.1 (31.0-37.0) g/dL RDW Std Deviation 37.3 (28.0-62.0) fl RDW Coeff of Marisol 13 (11.0-15.0) % Plt Count 170 (150-400) K/uL MPV 12.60 H (7.40-12.00) fL Neut % (Auto) 75.5 (48.0-80.0) % Lymph % (Auto) 12.5 L (16.0-40.0) % Sherman % (Auto) 9.5 (0.0-15.0) % Eos % (Auto) 2.2 (0.0-7.0) % Baso % (Auto) 0.3 (0.0-1.5) % Neut # (Auto) 5.9 H (1.4-5.7) K/uL Lymph # (Auto) 1.0 (0.6-2.4) K/uL Sherman # (Auto) 0.7 (0.0-0.8) K/uL Eos # (Auto) 0.2 (0.0-0.7) K/uL Baso # (Auto) 0.0 (0.0-0.1) K/uL Nucleated RBC % 0.0 /100WBC Nucleated RBCs # 0 K/uL Sodium 133 L (136-148) mmol/L Potassium 3.8 (3.5-5.1) mmol/L Chloride 97 L (98-107) mmol/L Carbon Dioxide 24.6 (21.0-32.0) mmol/L BUN 13 (7.0-18.0) mg/dL Creatinine 0.8 (0.8-1.3) mg/dL Est Cr Clr Drug Dosing 144.67 mL/min Estimated GFR (MDRD) > 60.0 ml/min Glucose 332 H (74-106) mg/dL Calcium 9.8 (8.5-10.1) mg/dL Total Bilirubin 1.4 H (0.2-1.0) mg/dL AST 18 (15-37) IU/L ALT 38 (14-63) IU/L Alkaline Phosphatase 225 H (46-116) U/L Total Protein 7.4 (6.4-8.2) g/dL Albumin 3.2 L (3.4-5.0) g/dL Globulin 4.2 H (2.6-4.0) g/dL Albumin/Globulin Ratio 0.8 L (0.9-1.6) SARS-CoV-2 RNA (HARRY) NEGATIVE (NEGATIVE) Meds: Medications Discontinued Medications Generic Name Dose Route Start Last Admin Trade Name Freq PRN Reason Stop Dose Admin Acetaminophen 1,000 mg 01/01/21 21:45 01/01/21 22:04 Acetaminophen 500 Mg Tab PO 01/01/21 21:46 1,000 mg ONETIME ONE Administration Diphenhydramine HCl 50 mg 01/01/21 21:45 01/01/21 22:04 Diphenhydramine 50 Mg/Ml Sdv IVPUSH 01/01/21 21:46 50 mg ONETIME ONE Administration Sodium Chloride 1,000 mls @ 999 mls/hr 01/01/21 21:45 01/01/21 22:04 Normal Saline IV 01/01/21 22:45 999 mls/hr BOLUS ONE Administration Ketorolac Tromethamine 30 mg 01/01/21 22:34 01/01/21 23:02 Ketorolac 30 Mg/Ml Sdv IVPUSH 01/01/21 22:35 30 mg ONETIME ONE Administration Metoclopramide HCl 10 mg 01/01/21 21:45 01/01/21 22:04 Metoclopramide 10 Mg/2 Ml Sdv IV 01/01/21 21:46 10 mg ONETIME ONE Administration Ondansetron HCl 4 mg 01/01/21 21:45 01/01/21 22:04 Ondansetron 4 Mg/2 Ml Sdv IVPUSH 01/01/21 21:46 4 mg ONETIME ONE Administration Sepsis Event Note (ED) - Evaluation Sepsis Screening Result: No Definite Risk - Focused Exam Vital Signs: Vital Signs Pulse Resp BP Pulse Ox 01/02/21 00:12 78 16 105/55 L 95 - My Orders Last 24 Hours: My Active Orders 01/01/21 22:16 Isolation [COMM] Routine - Assessment/Plan Last 24 Hours: My Active Orders 01/01/21 22:16 Isolation [COMM] Routine
--- NOTE | 2021-01-01 22:29 | CT ---
INDICATION: Headache. TECHNIQUE: CT head without contrast. COMPARISON: None. FINDINGS: CSF spaces: Within normal limits for age. Brain parenchyma and extra-axial spaces: The hurtado-white differentiation is normal. No sign of mass, hemorrhage, or midline shift. No extra-axial fluid collection. Skull base and calvarium: The visualized paranasal sinuses and mastoid air cells demonstrate no acute or significant findings. The visualized orbits are grossly unremarkable. No skull fractures. IMPRESSION: Unremarkable noncontrast head CT. Please note that all CT scans at this facility use dose modulation, iterative reconstruction, and/or weight-based dosing when appropriate to reduce radiation dose to as low as reasonably achievable. Dictated by Eren Driver MD @ 01/01/2021 10:27:48 PM (Electronically Signed)
[2021-01-01] MEDS ORDERED: Ketorolac 30 MG/ML SDV IVPUSH ONE (22:34)
[2021-01-01 23:03] LABS: BLOOD UREA NITROGEN,BUN 13 mg/dL (7.0-18.0); CARBON DIOXIDE,CO2 24.6 mmol/L (21.0-32.0); CHLORIDE,CL 97 mmol/L (98-107); GLUCOSE RANDOM 332 mg/dL (74-106); POTASSIUM,K 3.8 mmol/L (3.5-5.1); SODIUM,NA 133 mmol/L (136-148)
[2021-01-02 00:12] VITALS: BP 105/55; PULSE 78
== END 2021-01-02 00:12 | disposition home or self-care (01) ==
LOC: MW.ED 18:49
DX: R51.9 Headache, unspecified (principal); E11.9 Type 2 diabetes mellitus without complications; Z20.822 Contact with and (suspected) exposure to COVID-19; Z79.84 Long term (current) use of oral hypoglycemic drugs
CPT/HCPCS: 36415; 70450; 80053; 85025; 87635; 87804; 93005; 96374; 96375; 99284; A9270; J1200; J1885; J2405; J2765; J7030; U0002

== ENCOUNTER 2022-10-29 15:06 | Emergency (ER) | payer MEDICARE, OTHER ==
[2022-10-29] MEDS ORDERED: Sodium Chloride 0.9% 10 ML Syringe FLUSH PRN (15:20)
[2022-10-29] MEDS ORDERED: Sodium Chloride 0.9% 2.5 ML Syringe FLUSH PRN (15:20)
[2022-10-29] MEDS ORDERED: Sodium Chloride 3% 500 ML IV SCH (15:30)
[2022-10-29] MEDS ORDERED: Ketorolac 30 MG/ML SDV IVPUSH ONE (15:36)
[2022-10-29] MEDS ORDERED: Sodium Chloride 0.9% 1,000 ML IV ONE ×2 (15:36→16:32)
[2022-10-29 15:39] LABS: BASOPHILS PERCENT AUTO 0.4 % (0.0-1.5); EOSINOPHILS ABSOLUTE AUTO 0.1 K/uL (0.0-0.7); EOSINOPHILS PERCENT AUTO 1.2 % (0.0-7.0); HEMATOCRIT 42.2 % (38.0-50.0); HEMOGLOBIN 14.8 g/dL (13.0-17.0); LYMPHOCYTES ABSOLUTE AUTO 1.4 K/uL (0.6-2.4); LYMPHOCYTES PERCENT AUTO 25.3 % (16.0-40.0); MEAN CORPUSCULAR HGB CONC 35.1 g/dL (31.0-37.0); MEAN CORPUSCULAR VOLUME 85.4 fL (80.0-98.0); MONOCYTES ABSOLUTE AUTO 0.5 K/uL (0.0-0.8); NEUTROPHILS ABSOLUTE AUTO 3.7 K/uL (1.4-5.7); NEUTROPHILS PERCENT AUTO 65.1 % (48.0-80.0); PLATELET COUNT,PLT 134 K/uL (150-400); RED BLOOD CELL COUNT 4.94 M/uL (4.50-5.90); WHITE BLOOD CELL COUNT,WBC 5.62 K/uL (4.0-11.0)
[2022-10-29 15:44] LABS: BASE EXCESS VENOUS 0.3 (-2.0-3.0); PH,VENOUS 7.4 (7.31-7.41)
[2022-10-29 15:58] LABS: HEMOGLOBIN A1C 11.1 %
[2022-10-29 16:22] LABS: LACTIC ACID 2.2 mmol/L (0.4-2.0)
[2022-10-29 16:28] LABS: ALBUMIN 3.6 g/dL (3.4-5.0); BILIRUBIN TOTAL 0.7 mg/dL (0.2-1.0); CALCIUM 8.7 mg/dL (8.5-10.1); CARBON DIOXIDE,CO2 23.6 mmol/L (21.0-32.0); EST CRCL DRUG DOSING (CG) 95.31 mL/min; MAGNESIUM 1.9 mg/dL (1.8-2.4); POTASSIUM,K 4.4 mmol/L (3.5-5.1); PROTEIN TOTAL,TP 7.3 g/dL (6.4-8.2)
[2022-10-29] MEDS ORDERED: Glucagon,Human Recombinant 1 MG Vial IM PRN (16:32)
[2022-10-29] MEDS ORDERED: 50% Dextrose in Water 50 ML Syringe IVPUSH PRN (16:32)
[2022-10-29] MEDS ORDERED: Insulin Regular, Human 100 Units/ML 10 ML Vial SUBCUT ONE (16:32)
[2022-10-29 18:13] LABS: APPEARANCE,URINE CLEAR; BILIRUBIN,URINE NEGATIVE (NEGATIVE); COLOR,URINE YELLOW; GLUCOSE,URINE >=1000 mg/dL (NEGATIVE); KETONES,URINE NEGATIVE (NEGATIVE); LEUKOCYTE ESTERASE,URINE NEGATIVE (NEGATIVE); NITRITE,URINE NEGATIVE (NEGATIVE); OCCULT BLOOD,URINE NEGATIVE (NEGATIVE); PH,URINE 5.5 (5.0-8.0); PROTEIN,URINE NEGATIVE (NEGATIVE); UROBILINOGEN,URINE 0.2 EU/dL (<2.0)
[2022-10-29 18:51] LABS: LACTIC ACID 1.5 mmol/L (0.4-2.0)
[2022-10-29 19:12] VITALS: BP 118/80; PULSE 69
== END 2022-10-29 19:11 | disposition home or self-care (01) ==
LOC: MW.ED 15:06
DX: E11.65 Type 2 diabetes mellitus with hyperglycemia (principal); R51.9 Headache, unspecified; Z79.84 Long term (current) use of oral hypoglycemic drugs
CPT/HCPCS: 36415; 80053; 81003; 82009; 82803; 82947; 83036; 83605; 83735; 85025; 96361; 96374; 99284; J1815; J1885; J3490; J7030

== ENCOUNTER 2023-03-22 10:41 | Emergency (ER) | payer SELFPAY ==
[2023-03-22 11:38] LABS: BASE EXCESS VENOUS 1.1 (-2.0-3.0); PH,VENOUS 7.45 (7.31-7.41)
[2023-03-22] MEDS ORDERED: Sodium Chloride 0.9% 1,000 ML IV STA (11:41)
[2023-03-22 11:43] LABS: BASOPHILS ABSOLUTE AUTO 0.04 K/uL (0.00-0.20); BASOPHILS PERCENT AUTO 0.9 % (0.0-1.0); EOSINOPHILS PERCENT AUTO 2.1 % (0.0-6.0); HEMATOCRIT 43.1 % (42.0-52.0); HEMOGLOBIN 15.4 g/dL (14.0-18.0); IMMATURE GRAN ABSOLUTE AUTO 0.01 K/uL (0.00-0.05); IMMATURE GRAN PERCENT AUTO 0.2 % (0.0-0.4); LYMPHOCYTES ABSOLUTE AUTO 1.39 K/uL (1.00-4.80); LYMPHOCYTES PERCENT AUTO 29.6 % (24.0-44.0); MEAN CORPUSCULAR HEMOGLOBIN 29.3 pg (28.0-32.0); MEAN CORPUSCULAR HGB CONC 35.7 g/dL (32.0-36.0); MEAN CORPUSCULAR VOLUME 82.1 fL (83.0-99.0); MEAN PLATELET VOLUME 11.9 fL (9.4-12.4); MONOCYTES ABSOLUTE AUTO 0.32 K/uL (0.00-0.80); MONOCYTES PERCENT AUTO 6.8 % (0.0-8.0); NEUTROPHILS ABSOLUTE AUTO 2.83 K/uL (1.80-7.70); NEUTROPHILS PERCENT AUTO 60.4 % (41.0-71.0); PLATELET COUNT,PLT 151 K/uL (150-400); RED BLOOD CELL COUNT 5.25 M/uL (4.52-5.90); WHITE BLOOD CELL COUNT,WBC 4.69 K/uL (3.9-11.3)
[2023-03-22 12:02] LABS: ALANINE AMINOTRANSFERASE,ALT 33 IU/L (14-63); ALBUMIN 3.9 g/dL (3.4-5.0); ALKALINE PHOSPHATASE 184 U/L (46-116); ASPARTATE AMNIOTRANSFERASE,AST 15 IU/L (15-37); BILIRUBIN TOTAL 0.7 mg/dL (0.2-1.0); BLOOD UREA NITROGEN,BUN 11 mg/dL (7.0-18.0); CALCIUM 9.2 mg/dL (8.5-10.1); CARBON DIOXIDE,CO2 24.7 mmol/L (21.0-32.0); CHLORIDE,CL 101 mmol/L (98-107); CREATININE 0.9 mg/dL (0.8-1.3); GLUCOSE RANDOM 346 mg/dL (74-106); LIPASE 59 U/L (16-77); MAGNESIUM 1.8 mg/dL (1.8-2.4); PHOSPHORUS 2.8 mg/dL (2.6-4.7); POTASSIUM,K 4.2 mmol/L (3.5-5.1); PROTEIN TOTAL,TP 7.9 g/dL (6.4-8.2); SODIUM,NA 137 mmol/L (136-148)
[2023-03-22 12:09] LABS: ESTIMATED GFR 106 mL/min (>60)
[2023-03-22 12:26] LABS: CORONAVIRUS COVID-19 NAA NEGATIVE (NEGATIVE); INFLUENZA A NAA NEGATIVE (NEGATIVE); INFLUENZA B NAA NEGATIVE (NEGATIVE)
[2023-03-22 13:25] VITALS: BP 128/80; PULSE 79
== END 2023-03-22 12:58 | disposition home or self-care (01) ==
LOC: MW.ED 10:41
DX: R10.84 Generalized abdominal pain (principal); E11.9 Type 2 diabetes mellitus without complications; Z79.84 Long term (current) use of oral hypoglycemic drugs; Z79.899 Other long term (current) drug therapy
CPT/HCPCS: 0240U; 36415; 80053; 82803; 83690; 83735; 84100; 85025; 96360; 99284; J7030; 99282

== ENCOUNTER 2023-09-17 16:03 | Emergency (ER) | payer SELFPAY ==
[2023-09-17] MEDS: Sodium Chloride 0.9% 2.5 ML Syringe FLUSH PRN (17:21)
[2023-09-17] MEDS: Sodium Chloride 0.9% 10 ML Syringe FLUSH PRN (17:21)
[2023-09-17] MEDS: Sodium Chloride 0.9% 1,000 ML IV ONE (17:21)
[2023-09-17 17:22] LABS: BASE EXCESS VENOUS -1.2 (-2.0-3.0); PH,VENOUS 7.42 (7.31-7.41)
[2023-09-17 17:23] LABS: BASOPHILS ABSOLUTE AUTO 0.04 K/uL (0.00-0.20); BASOPHILS PERCENT AUTO 0.7 % (0.0-1.0); EOSINOPHILS ABSOLUTE AUTO 0.09 K/uL (0.00-0.45); EOSINOPHILS PERCENT AUTO 1.5 % (0.0-6.0); HEMATOCRIT 42.4 % (42.0-52.0); HEMOGLOBIN 15.1 g/dL (14.0-18.0); IMMATURE GRAN ABSOLUTE AUTO 0.01 K/uL (0.00-0.05); IMMATURE GRAN PERCENT AUTO 0.2 % (0.0-0.4); LYMPHOCYTES PERCENT AUTO 30.6 % (24.0-44.0); MEAN CORPUSCULAR HEMOGLOBIN 29.7 pg (28.0-32.0); MEAN CORPUSCULAR HGB CONC 35.6 g/dL (32.0-36.0); MEAN CORPUSCULAR VOLUME 83.3 fL (83.0-99.0); MEAN PLATELET VOLUME 11.9 fL (9.4-12.4); MONOCYTES ABSOLUTE AUTO 0.39 K/uL (0.00-0.80); MONOCYTES PERCENT AUTO 6.6 % (0.0-8.0); NEUTROPHILS ABSOLUTE AUTO 3.56 K/uL (1.80-7.70); NEUTROPHILS PERCENT AUTO 60.4 % (41.0-71.0); PLATELET COUNT,PLT 157 K/uL (150-400); RED BLOOD CELL COUNT 5.09 M/uL (4.52-5.90); WHITE BLOOD CELL COUNT,WBC 5.89 K/uL (3.9-11.3)
[2023-09-17 18:17] LABS: ALANINE AMINOTRANSFERASE,ALT 32 IU/L (14-63); ALBUMIN 3.7 g/dL (3.4-5.0); ALKALINE PHOSPHATASE 168 U/L (46-116); ASPARTATE AMNIOTRANSFERASE,AST 17 IU/L (15-37); BILIRUBIN TOTAL 0.8 mg/dL (0.2-1.0); BLOOD UREA NITROGEN,BUN 17 mg/dL (7.0-18.0); CALCIUM 8.8 mg/dL (8.5-10.1); CARBON DIOXIDE,CO2 22.3 mmol/L (21.0-32.0); CHLORIDE,CL 100 mmol/L (98-107); CREATININE 0.9 mg/dL (0.8-1.3); GLUCOSE RANDOM 342 mg/dL (74-106); LIPASE 52 U/L (16-77); MAGNESIUM 1.9 mg/dL (1.8-2.4); PHOSPHORUS 3.6 mg/dL (2.6-4.7); PROTEIN TOTAL,TP 7.4 g/dL (6.4-8.2); SODIUM,NA 133 mmol/L (136-148)
[2023-09-17 18:29] LABS: ESTIMATED GFR 106 mL/min (>60)
[2023-09-17 19:25] VITALS: BP 124/79; PULSE 75
== END 2023-09-17 19:23 | disposition home or self-care (01) ==
LOC: MW.ED 16:03
DX: E11.65 Type 2 diabetes mellitus with hyperglycemia (principal); E78.00 Pure hypercholesterolemia, unspecified; Z79.84 Long term (current) use of oral hypoglycemic drugs; Z79.899 Other long term (current) drug therapy; Z75.8 Other problems related to medical facilities and other health care
CPT/HCPCS: 36415; 80053; 82009; 82803; 83690; 83735; 84100; 84484; 85025; 93005; 96360; 99283; J3490; J7030; 93010

== ENCOUNTER 2024-03-16 15:41 | Emergency (ER) | payer SELFPAY ==
[2024-03-16] MEDS: Diphtheria,Pertussis(Acell),Tetanus Vaccine 0.5 ML Syringe IM ONE (16:12)
[2024-03-16] MEDS: Bacitracin Oint 1 GM U/D Packet TOP ONE (16:13)
[2024-03-16] MEDS: Acetaminophen/HYDROcodone 325-5 MG Tab PO ONE (16:14)
[2024-03-16 16:58] VITALS: BP 127/76; PULSE 85
== END 2024-03-16 16:59 | disposition home or self-care (01) ==
LOC: MW.ED 15:41
DX: S61.210A Laceration without foreign body of right index finger without damage to nail, initial encounter (principal); E11.9 Type 2 diabetes mellitus without complications; Z90.49 Acquired absence of other specified parts of digestive tract; Z79.84 Long term (current) use of oral hypoglycemic drugs; Z79.899 Other long term (current) drug therapy; Z75.8 Other problems related to medical facilities and other health care; Z23 Encounter for immunization; W26.8XXA Contact with other sharp object(s), not elsewhere classified, initial encounter
CPT/HCPCS: 73140; 90471; 90715; 99283; A9270

== ENCOUNTER 2024-05-15 08:22 | Emergency (ER) | payer SELFPAY ==
[2024-05-15] MEDS ORDERED: Acetaminophen 500 MG Tab PO ONE (08:26)
[2024-05-15] MEDS: Ondansetron 4 MG Tab.DIS PO ONE (08:41)
[2024-05-15] MEDS: Acetaminophen 500 MG Tab PO ONE (08:41)
[2024-05-15] MEDS ORDERED: Sodium Chloride 0.9% 10 ML Syringe FLUSH PRN (08:44)
[2024-05-15] MEDS: Lactated Ringers 1,000 ML IV ONE (09:02)
[2024-05-15 09:11] LABS: BASOPHILS ABSOLUTE AUTO 0.03 K/uL (0.00-0.20); BASOPHILS PERCENT AUTO 0.5 % (0.0-1.0); EOSINOPHILS ABSOLUTE AUTO 0.09 K/uL (0.00-0.45); EOSINOPHILS PERCENT AUTO 1.4 % (0.0-6.0); HEMATOCRIT 40.3 % (42.0-52.0); HEMOGLOBIN 14.8 g/dL (14.0-18.0); IMMATURE GRAN ABSOLUTE AUTO 0.02 K/uL (0.00-0.05); IMMATURE GRAN PERCENT AUTO 0.3 % (0.0-0.4); LYMPHOCYTES ABSOLUTE AUTO 0.67 K/uL (1.00-4.80); LYMPHOCYTES PERCENT AUTO 10.6 % (24.0-44.0); MEAN CORPUSCULAR HEMOGLOBIN 29.6 pg (28.0-32.0); MEAN CORPUSCULAR HGB CONC 36.7 g/dL (32.0-36.0); MEAN CORPUSCULAR VOLUME 80.6 fL (83.0-99.0); MEAN PLATELET VOLUME 12.1 fL (9.4-12.4); MONOCYTES ABSOLUTE AUTO 0.42 K/uL (0.00-0.80); MONOCYTES PERCENT AUTO 6.6 % (0.0-8.0); NEUTROPHILS ABSOLUTE AUTO 5.12 K/uL (1.80-7.70); NEUTROPHILS PERCENT AUTO 80.6 % (41.0-71.0); PLATELET COUNT,PLT 101 K/uL (150-400); WHITE BLOOD CELL COUNT,WBC 6.35 K/uL (3.9-11.3)
[2024-05-15 09:28] LABS: A/G RATIO 0.8 (0.9-1.6); ALBUMIN 3.3 g/dL (3.4-5.0); C-REACTIVE PROTEIN 4.28 mg/dL (<0.3); CALCIUM 8.4 mg/dL (8.5-10.1); CARBON DIOXIDE,CO2 19.8 mmol/L (21.0-32.0); CREATININE 0.7 mg/dL (0.8-1.3); EST CRCL DRUG DOSING (CG) 137.45 mL/min; MAGNESIUM 1.7 mg/dL (1.8-2.4); POTASSIUM,K 3.9 mmol/L (3.5-5.1); PROTEIN TOTAL,TP 7.5 g/dL (6.4-8.2)
[2024-05-15] MEDS: Ketorolac 30 MG/ML SDV IVPUSH ONE (09:34)
[2024-05-15 11:45] VITALS: BP 125/84
[2024-05-15 12:05] VITALS: PULSE 89
== END 2024-05-15 12:04 | disposition home or self-care (01) ==
LOC: MW.ED 08:22
DX: J11.00 Influenza due to unidentified influenza virus with unspecified type of pneumonia (principal); J11.1 Influenza due to unidentified influenza virus with other respiratory manifestations; E11.9 Type 2 diabetes mellitus without complications; E78.00 Pure hypercholesterolemia, unspecified; Z90.49 Acquired absence of other specified parts of digestive tract; Z79.84 Long term (current) use of oral hypoglycemic drugs; Z79.899 Other long term (current) drug therapy
CPT/HCPCS: 36415; 71045; 80053; 83605; 83735; 85025; 85652; 86140; 96361; 96374; 99284; A9270; J1885; J7120

== ENCOUNTER 2024-06-07 19:57 | Emergency (ER) | payer SELFPAY ==
[2024-06-07 22:26] VITALS: BP 134/82; PULSE 98
== END 2024-06-07 21:04 | disposition home or self-care (01) ==
LOC: MW.ED 19:57
DX: L84 Corns and callosities (principal); E78.00 Pure hypercholesterolemia, unspecified; E11.9 Type 2 diabetes mellitus without complications; Z75.8 Other problems related to medical facilities and other health care; Z79.84 Long term (current) use of oral hypoglycemic drugs; Z79.899 Other long term (current) drug therapy
CPT/HCPCS: 99283

== ENCOUNTER 2024-09-16 20:19 | Emergency (ER) | payer SELFPAY ==
[2024-09-16 20:49] VITALS: BP 134/80; PULSE 98
== END 2024-09-16 23:00 | disposition left against medical advice (07) ==
LOC: MW.ED 20:19
DX: Z53.21 Procedure and treatment not carried out due to patient leaving prior to being seen by health care provider (principal)